=== PATIENT | female | born 1945 | race Caucasian/White ===

== ENCOUNTER 2020-01-08 12:43 | Outpatient (CLI) | payer MEDICARE, SELFPAY ==
--- NOTE | 2020-01-08 13:05 | MM_ITS ---
WS: [id number] BILATERAL SCREENING DIGITAL MAMMOGRAM WITH CAD HISTORY: SCREENING COMPARISON: 08/17/2018 and 09/09/2011 Bilateral CC and MLO views submitted. Computer aided detection analyzed. Breast composition: The breasts are heterogeneously dense, which may obscure small masses. No suspici ous masses, microcalcifications or architectural distortion. Benign scattered vascular calcifications and round calcifications. No interval change. MM/[place] [id number] IMPRESSION: BI-RADS: 2-Benign FOLLOW UP: 1 Year Follow-up
== END 2020-01-08 12:44 | disposition home or self-care (01) ==
LOC: RADSHAW 12:48
PROVIDERS: PCP Family Medicine; Visit Provider Family Medicine
DX: Z12.31 Encounter for screening mammogram for malignant neoplasm of breast (principal)
CPT/HCPCS: 77067

== ENCOUNTER 2020-12-13 14:16 | Observation (INO) | payer MEDICARE, SELFPAY ==
[2020-12-13 15:00] VITALS: BP 117/98; PULSE 78; RESP 18; TEMP 36.9; O2SAT 98; BMI 22.6
[2020-12-13 17:21] VITALS: BP 105/68; PULSE 79; RESP 12; TEMP 36.3; O2SAT 94
[2020-12-13 17:30] LABS: Basophils # 0.1 10^3/uL (0.0-0.1); Basophils % 1.1 %; Eosinophils # 0.1 10^3/uL (0.0-0.8); Eosinophils % 1.2 %; Hematocrit 38.2 % (37.0-47.0); Hemoglobin 12.8 g/dL (11.5-15.3); Lymphocytes # 2.9 10^3/uL (0.8-4.8); Lymphocytes % 30.1 %; Mean Corpuscular HGB Conc 33.5 g/dL (30.0-36.0); Mean Corpuscular Hemoglobin 31.5 pg (28.0-34.0); Mean Corpuscular Volume 94.1 fl (81-99); Mean Platelet Volume 11.1 fL (7.4-10.4); Monocytes # 0.6 10^3/uL (0.2-0.9); Monocytes % 6.2 %; Neutrophils # 5.81 10^3/uL (1.8-7.7); Neutrophils % 61.1 %; Nucleated Red Blood Cells % 0 %; Platelet Count 331 10^3/cmm (130-400); Red Blood Count 4.06 10^6/uL (4.1-5.3); Red Cell Distribution Width 13.4 % (12.1-15.1); White Blood Count 9.5 10^3/uL (4.0-10.0)
--- NOTE | 2020-12-13 17:37 | ECG_ITS ---
[facility] Test Date: 2020-12-13 Pat Name: Kimberlyn Be Department: Room: Gender: Female Tobacco Sizer: : 1945 Requested By: Josue Sellers Order Number: [id number] Nikki MD: CHRISTIAN FITZGERALD Measurements Intervals [place] Rate: 72 P: DC: QRS: 95 QRSD: 106 T: 14 QT: 422 QTc: 462 Interpretive Statements ATRIAL FIBRILLATION BORDERLINE RIGHT AXIS DEVIATION [QRS AXIS > 90] ANTERIOR MYOCARDIAL INFARCTION , OF INDETERMINATE AGE [40+ ms Q WAVE AND/OR ST/T ABNORMALITY IN V3/V4] ST DEVIATION AND MODERATE T-WAVE ABNORMALITY, CONSIDER LATERAL ISCHEMIA [-0.1+ mV T-WAVE IN I/aVL/V5/V6] Compared to ECG 08/10/2018 16:44:19 T-wave abnormality now present Possible ischemia now present Myocardial infarct finding still present Electronically Signed On 12-14-2020 0:10:33 CDT by CHRISTIAN FITZGERALD [id number]
[2020-12-13 17:51] LABS: Alanine Aminotransferase 9 U/L (0-33); Albumin Level 2.8 g/dL (3.5-5.2); Alkaline Phosphatase 72 IU/L (35-105); Aspartate Amino Transferase 16 U/L (0-32); Blood Urea Nitrogen 17 mg/dL (8-23); Calcium 9.1 mg/dL (8.5-10.5); Carbon Dioxide 29 mmol/L (22-29); Chloride 97 mmol/L (98-107); Creatinine Clr Calc Pharmacy 49.8831; Globulin 3.4 g/dL (1.3-4.6); Glucose 172 mg/dL (65-115); Osmolality Calculated 288 mOsm/kg (285-295); Sodium 136 mmol/L (136-145); Total Bilirubin 0.3 mg/dL (0.15-1.2); Total Protein 6.2 g/dL (6.6-8.7)
--- NOTE | 2020-12-13 18:22 | XRR_ITS ---
PROCEDURE INFORMATION: Exam: XR Chest Exam date and time: 12/13/2020 6:22 PM Age: 75 years old Clinical indication: Other: Weakness; Prior surgery; Surgery date: 6+ months; Surgery type: Cabg TECHNIQUE: Imaging protocol: XR of the chest. Views: 1 view. COMPARISON: CR Chest 1 [place] [id number] 06/13/2018 11:24 AM FINDINGS: Lungs: Unremarkable. No consolidation. Pleural spaces: Unremarkable. No pleural effusion. No pneumothorax. Heart/Mediastinum: Cardiomegaly. Bones/joints: Sternotomy wires. XR/XR chest 1V portable [id number] IMPRESSION: 1. Negative for infiltrate 2. Cardiomegaly. 3. Sternotomy wires. Radiation Dose CTDIVOL = (mGy): DLP = (mGy-cm)
--- NOTE | 2020-12-13 18:23 | ED_ITS ---
HPI - GI Bleed General: Chief complaint: GI Bleed Stated complaint: BLOODY STOOL, THROWING UP Time Seen by Provider: 12/13/20 18:14 Source: patient Mode of arrival: ambulatory Limitations: no limitations History of Present Illness: HPI Narrative: 75-year-old female who states that she has been having increasing weakness over the last 2 weeks. She states she has not been able to get out of bed or walk over the last week and was not able to walk here. She states she has had some intermittent blood in her stools with bright red she has had some confusion as well she will answer most my questions appropriately but is very frail appearing she has had some vomiting denies any fevers or coughs. Associated symptoms: Denies chills, easy bruising, fever(s), headache(s) or rash Review of Systems Const: Denies: fever(s), chills, body aches or change in appetite Eyes: Denies: blurry vision or eye discomfort ENMT: Denies: throat pain or dental pain Card: Denies: chest pain Resp: Denies: dyspnea GI: Reports: hematochezia : Denies: dysuria Musc: Reports: muscle weakness Skin/Breast: Denies: rash Neuro: Denies: headache(s) Psych: Denies: depression Irvin/Lymph: Denies: easy bruising All/Imm: Denies: urticaria PFSH ED PFSH: Medical History Arthritis Atrial fibrillation CAD (coronary artery disease) Carotid stenosis Depression Diabetes Hernia of abdominal cavity Hypertension Moderate mitral regurgitation Surgical History History of CEA (carotid endarterectomy) Hx of CABG Social History Smoking and tobacco status: former smoker Second hand smoke exposure: No Smoking risk assessment/counseling performed?: No Physical Exam Const: COMMON NORMALS: no acute distress and patient oriented x3 GENERAL APPEARANCE: frail appearing HENMT: COMMON NORMALS: normocephalic and atraumatic HEAD & SCALP: normocephalic and atraumatic Eye: COMMON NORMALS: Equal, round and reactive pupils present and EOMs intact bilaterally PUPIL: Yes Equal, round and reactive pupils present Neck/C-Spine: COMMON NORMALS: full ROM and supple Chest: COMMONS NORMALS: normal inspection of the chest and normal palpation of entire chest wall Resp: COMMON NORMALS: normal respiratory effort, No retractions, No use of accessory muscles and clear to auscultation bilaterally AUSCULTATION: clear to auscultation bilaterally Cardio: COMMON NORMALS: regular rate, regular rhythm and No murmurs present (Cardio) RATE: regular rate RHYTHM: regular rhythm GI: COMMON NORMALS: Normal to inspection, nondistended, normoactive bowel sounds present, Soft to palpation, non-tender and no masses PALPATION: Yes Soft to palpation RECTAL EXAM: visual inspection normal and heme negative stool Extremity: COMMON NORMALS: normal to inspection and full ROM Neuro: COMMON NORMALS: patient oriented x3, moves all extremities and no focal motor deficits Psych: COMMON NORMALS: mental status grossly normal, Normal thought process present and cooperative THOUGHT PROCESS: Normal thought process present Skin: COMMON NORMALS: no rashes or lesions noted and no wounds GENERAL SKIN EXAM: no rashes or lesions noted Course Vital Signs: Vital signs: Vital Signs Temperature 97.4 F L 12/13/20 17:21 Pulse Rate 79 12/13/20 17:21 Respiratory Rate 12 12/13/20 17:21 Blood Pressure 105/68 12/13/20 17:21 Pulse Oximetry 94 12/13/20 17:21 MDM - GI Bleed MDM Narrative: Medical decision making narrative: Patient presents with generalized weakness having difficulty walking does have a urinary tract infection could be causing her weakness she states she had blood in her stool at home her rectal exam here was negative hemoglobin is normal spoke to the hospitalist will admit for her weakness and her cystitis. Lab Data: Labs: Lab Results 12/13/20 12/13/20 12/13/20 17:26 17:26 17:26 WBC 9.5 10^3/uL 10^3/ uL (4.0-10.0) RBC 4.06 10^6/uL L 10 ^6/uL (4.1-5.3) Hgb 12.8 g/dL g/dL (11.5-15.3) Hct 38.2 % % (37.0-47.0) MCV 94.1 fl fl (81-99) MCH 31.5 pg pg (28.0-34.0) MCHC 33.5 g/dL g/dL (30.0-36.0) RDW 13.4 % % (12.1-15.1) Plt Count 331 10^3/cmm 10^3 /cmm (130-400) MPV 11.1 fL H fL (7.4-10.4) Neut % (Auto) 61.1 % % Lymph % (Auto) 30.1 % % [place] % (Auto) 6.2 % % Eos % (Auto) 1.2 % % Baso % (Auto) 1.1 % % Neut # (Auto) 5.81 10^3/uL 10^3 /uL (1.8-7.7) Lymph # (Auto) 2.9 10^3/uL 10^3/ uL (0.8-4.8) [place] # (Auto) 0.6 10^3/uL 10^3/ uL (0.2-0.9) Eos # (Auto) 0.1 10^3/uL 10^3/ uL (0.0-0.8) Baso # (Auto) 0.1 10^3/uL 10^3/ uL (0.0-0.1) Nucleated RBC % (a uto) 0 % % Nucleated RBCs # 0.0 /100WBC /100W BC PT INR Sodium 136 mmol/L mmol/L (136-145) Potassium 4.0 mmol/L mmol/L (3.5-5.1) Chloride 97 mmol/L L mmol/ L (98-107) Carbon Dioxide 29 mmol/L mmol/L (22-29) Anion Gap 14.0 (5-19) BUN 17 mg/dL mg/dL (8-23) Creatinine 0.5 mg/dL mg/dL (0.5-0.9) GFR Calculation Not Reportable Glucose 172 mg/dL H mg/dL (65-115) Calculated Osmolal ity 288 mOsm/kg mOsm/ kg (285-295) Calcium 9.1 mg/dL mg/dL (8.5-10.5) Total Bilirubin 0.3 mg/dL mg/dL (0.15-1.2) AST 16 U/L U/L (0-32) ALT 9 U/L U/L (0-33) Alkaline Phosphata se 72 IU/L IU/L (35-105) Troponin T Baselin e 25 ng/L H ng/L (0-10) Troponin T 120 Min [place] Delta Troponin T Total Protein 6.2 g/dL L g/dL (6.6-8.7) Albumin 2.8 g/dL L g/dL (3.5-5.2) Globulin 3.4 g/dL g/dL (1.3-4.6) Urine Color Urine Appearance Urine pH Ur Specific Gravit y Urine Protein Urine Glucose (UA) Urine Ketones Urine Blood Urine Nitrate Urine Bilirubin Urine Urobilinogen Ur Leukocyte Aleksandra ase Urine RBC Urine WBC Ur Squamous Epith Cells Amorphous Sediment Urine Bacteria 3 12/13/20 12/13/20 12/13/20 17:26 18:19 19:40 WBC RBC Hgb Hct MCV MCH MCHC RDW Plt Count MPV Neut % (Auto) Lymph % (Auto) [place] % (Auto) Eos % (Auto) Baso % (Auto) Neut # (Auto) Lymph # (Auto) [place] # (Auto) Eos # (Auto) Baso # (Auto) Nucleated RBC % (a uto) Nucleated RBCs # PT 16.60 SECONDS H S ECONDS (12.1-14.9) INR 1.30 H (0.8-1.2) Sodium Potassium Chloride Carbon Dioxide Anion Gap BUN Creatinine GFR Calculation Glucose Calculated Osmolal ity Calcium Total Bilirubin AST ALT Alkaline Phosphata se Troponin T Baselin e Troponin T 120 Min [place] 21.39 ng/L H ng/L (0-10) Delta Troponin T -3.61 ABS# L ABS# (0-10) Total Protein Albumin Globulin Urine Color Yellow (Yellow) Urine Appearance Hazy A (CLEAR) Urine pH 5 (5-7) Ur Specific Gravit y 1.005 (1.005-1.030) Urine Protein 2+ H (Negative) Urine Glucose (UA) Norm (Normal) Urine Ketones Negative (Negative) Urine Blood 3+ H (Negative) Urine Nitrate Negative (Negative) Urine Bilirubin Neg (Negative) Urine Urobilinogen Norm mg/dL mg/dL (Negative) Ur Leukocyte Aleksandra ase 1+ H (Negative) Urine RBC 15-25 /hpf H /hpf (0-2) Urine WBC 80-100 /hpf H /hp f (0-5) Ur Squamous Epith Cells 0-4 /hpf H /hpf (0-5) Amorphous Sediment Not Reportable Urine Bacteria 4+ /hpf H /hpf (NONE) Imaging Data^: CXR: Attestation: I personally reviewed and interpreted this imaging study as follows: Radiologist's impression: [facility] [address] [place] [id number] XRay Report Signed Patient: Kimberlyn Be Unit #: [id number] : 1945 Age/Sex: 75 / F ADM Date: 12/13/20 Loc: ER Room/Bed: Attending Dr: Ordering Provider/Ordering MD: Ras Easley MD Date of Service: 12/13/20 Procedure(s): XR chest 1V portable [id number] Accession Number(s): [id number] Report Number: [id number] PROCEDURE INFORMATION: Exam: XR Chest Exam date and time: 12/13/2020 6:22 PM Age: 75 years old Clinical indication: Other: Weakness; Prior surgery; Surgery date: 6+ months; Surgery type: Cabg TECHNIQUE: Imaging protocol: XR of the chest. Views: 1 view. COMPARISON: CR Chest 1 [place] [id number] 06/13/2018 11:24 AM FINDINGS: Lungs: Unremarkable. No consolidation. Pleural spaces: Unremarkable. No pleural effusion. No pneumothorax. Heart/Mediastinum: Cardiomegaly. Bones/joints: Sternotomy wires. XR/XR chest 1V portable [id number] IMPRESSION: 1. Negative for infiltrate 2. Cardiomegaly. 3. Sternotomy wires. Radiation Dose CTDIVOL = (mGy): DLP = (mGy-cm) Dictated By: Toan Rice MD Signed By: Toan Rice MD Signed Date/Time: 12/13/201902 DD/ 21 CT Head: Radiologist's impression: [facility] [address] [place] [address] Scan Report Signed Patient: Kimberlyn Be Unit #: [id number] : 1945 Age/Sex: 75 / F ADM Date: 12/13/20 Loc: ER Room/Bed: Attending Dr: Ordering Provider/Ordering MD: Ras Easley MD Date of Service: 12/13/20 Procedure(s): CT head wo con* [id number] Accession Number(s): [id number] Report Number: [id number] PROCEDURE INFORMATION: Exam: CT Head Without Contrast Exam date and time: 12/13/2020 6:22 PM Age: 75 years old Clinical indication: Altered mental status/memory loss and weakness, extremity; Bilateral; Confusion or disorientation; Patient HX: Weakness x 2 weeks w confusion; Additional info: Weakjness TECHNIQUE: Imaging protocol: Computed tomography of the head without contrast. Radiation optimization: All CT scans at this facility use at least one of these dose optimization techniques: automated exposure control; mA and/or kV adjustment per patient size (includes targeted exams where dose is matched to clinical indication); or iterative reconstruction. COMPARISON: MRI Head w/wo* [id number] 06/14/2018 9:39 AM RADIATION DOSE METRICS: Total DLP (mGy-cm): 761.48 FINDINGS: Brain: Chronic right temporal lobe infarct. Large amount of diffuse white matter disease likely reflecting chronic microvascular ischemic changes. Cerebral ventricles: No ventriculomegaly. Paranasal sinuses: Visualized sinuses are unremarkable. No fluid levels. Mastoid air cells: Visualized mastoid air cells are well aerated. Bones/joints: Unremarkable. No acute fracture. Soft tissues: Unremarkable. CT/CT head wo con* [id number] IMPRESSION: 1. Negative for intracranial hemorrhage or mass effect. 2. Chronic right temporal lobe infarct. 3. Large amount of diffuse white matter disease likely reflecting chronic microvascular ischemic changes. Radiation Dose CTDIVOL = (mGy): DLP = 761.48 (mGy-cm) Dictated By: Toan Rice MD Signed By: Toan Rice MD Signed Date/Time: 12/13/201848 DD/ 21 Discharge Plan Discharge Patient Disposition: Admitted As Inpatient Clinical Impression: Blood in stool, Weakness Acute cystitis Qualifiers: Hematuria presence: with hematuria Qualified Code(s): N30.01 - Acute cystitis with hematuria Condition: Stable Coding Level of Care Code ED Business Excellence Leader for Chg Fwd Exam Comprehensive
[2020-12-13 18:26] LABS: Troponin(5th) Baseline 25 ng/L (0-10)
[2020-12-13] MEDS: sodium chloride 0.9% 1,000 ML 999 ML IV (18:43)
[2020-12-13 19:03] LABS: Urine Appearance Hazy (CLEAR); Urine Color Yellow (Yellow)
[2020-12-13 19:04] LABS: Glucose Urine UA Norm (Normal); Protein Urine 2+ (Negative); Specific Gravity, Urine 1.005 (1.005-1.030); pH Urine 5 (5-7)
[2020-12-13 19:05] LABS: Add Urine Microscopic? YES; Bilirubin Urine Neg (Negative); Blood Urine 3+ (Negative); Ketones Urine Negative (Negative); Leukocyte Esterase Urine 1+ (Negative); Nitrate Urine Negative (Negative); Urobilinogen Urine Norm (Negative)
[2020-12-13 19:07] LABS: RBC Urine 15-25 /hpf (0-2); WBC Urine 80-100 /hpf (0-5)
[2020-12-13 19:08] LABS: Add Urine Culture? Yes; Bacteria Urine 4+ /hpf; Squamous Epithelial Cell Urine 0-4 /hpf (0-5)
[2020-12-13] MEDS: cefTRIAXone 1,000 MG in sodium chloride 0.9% (plus) 50 ML 100 MG IV (19:25)
--- NOTE | 2020-12-13 19:37 | ECG_ITS ---
[facility] Test Date: 2020-12-13 Pat Name: Kimberlyn Be Department: Room: Gender: Female Jackspooler: : 1945 Requested By: Josue Sellers Order Number: [id number] Nikki MD: CHRISTIAN FITZGERALD Measurements Intervals [place] Rate: 63 P: VA: QRS: 89 QRSD: 101 T: -28 QT: 428 QTc: 440 Interpretive Statements ATRIAL FIBRILLATION WITH ABERRANT CONDUCTION OR VENTRICULAR PREMATURE COMPLEXES INFERIOR MYOCARDIAL INFARCTION , OF INDETERMINATE AGE [40+ ms Q WAVE AND/OR ST/T ABNORMALITY IN II/aVF] Compared to ECG 12/13/2020 17:19:36 Ventricular premature complex(es) now present Aberrant conduction of supraventricular beat(s) now present T-wave abnormality no longer present Possible ischemia no longer present Myocardial infarct finding still present Electronically Signed On 12-14-2020 0:15:36 CDT by CHRISTIAN FITZGERALD [id number]
--- NOTE | 2020-12-13 19:48 | PC.NURSE ---
Pt. family in the room is very angry because she is not allowed to go out to lobby and update family and come back to the room due to covid rules.
[2020-12-13 20:06] LABS: Troponin 5 2HR 21.39 ng/L (0-10)
[2020-12-13 20:10] LABS: Troponin 5 2HR Delta -3.61 ABS# (0-10)
[2020-12-13 21:29] VITALS: BP 139/70; PULSE 98; RESP 20; O2SAT 94
[2020-12-13 23:01] VITALS: BP 149/50; PULSE 78; RESP 17; TEMP 36.8; O2SAT 100
[2020-12-13 23:06] VITALS: BMI 24.1
[2020-12-14 03:36] VITALS: BP 145/63; PULSE 57; RESP 17; TEMP 37.1; O2SAT 98
[2020-12-14 07:38] VITALS: PULSE 60; RESP 17; TEMP 37.2; O2SAT 96
--- NOTE | 2020-12-14 08:01 | P.HP_ITS ---
Providers/Chief Complaint Admitting Physician: Aliya Potter MD Primary Care Provider: Roney Clinton Chief Complaint: BLOODY STOOL, THROWING UP History of Present Illness Kimberlyn Be is a 75 year old female who presented to the emergency room with complaints of blood per rectum and not feeling well. She has been very weak, not feeling like she can get up and walk around. Spent a lot of time in bed. She has not had a good appetite. She has had some nausea and vomitng. Has not had any diarrhea. Denies abdominal pain. Has not had any difficulty urinating. She admits to feeling confused at times. No reports of any chest pain. She does not report shortness of breath with exertion but again has not been exerting much due to feeling weak. The weakness is all over, not worse on one side or the other. She does have some chronic paresthesias in her lower extremities. Her legs always hurt. Nothing is new in this regard. She does have diabetes mellitus, known coronary artery disease, peripheral artery disease among other diagnoses listed below. She follows with Dr. Schaeffer here. Denies any recent medication changes. Reports compliance with her medications. She is not able to list all of them but indicates that it should be similar to what she was on when she was here seeing Dr. Sami elmore. Work-up in the emergency room showed an abnormal urinalysis with a few squamous cells in place, negative cardiac enzymes, chest x-ray and CT of the head without acute findings. She was felt too weak for discharge based on evaluation. She received some Rocephin and is being admitted for further care. Stool was checked in the emergency room and was brown, Hemoccult negative without any evidence of bleeding visualized. Review of Systems General: Reports: 10 or more systems reviewed and unremarkable except in HPI and below Medications/Allergies Home Medications Medication Instructions Recorded Confirmed Last Taken Type Lactobacillus acidophilus 0.25 tsp PO DAILY 12/17/19 06/24/20 Unknown History apixaban 5 mg tablet 5 mg PO BID 12/17/19 06/24/20 Unknown History atorvastatin 40 mg tablet 40 mg PO DAILY 12/17/19 06/24/20 Unknown History cholestyramine (with sugar) 4 gram 4 gm PO BID 12/17/19 06/24/20 Unknown History powder for susp in a packet cilostazol 100 mg tablet 100 mg PO BID 12/17/19 06/24/20 Unknown History cyanocobalamin (vitamin B-12) 1,000 mcg PO DAILY 12/17/19 06/24/20 Unknown History 1,000 mcg capsule desonide 0.05 % topical cream 1 applic TOPICAL DAILY 12/17/19 06/24/20 Unknown History digoxin 125 mcg (0.125 mg) tablet 125 mcg PO DAILY 12/17/19 06/24/20 Unknown History dulaglutide 0.75 mg/0.5 mL 0.5 mg SUBCUT .WEEKLY ml 12/17/19 06/24/20 Unknown History subcutaneous pen injector fenofibrate nanocrystallized 145 145 mg PO DAILY 12/17/19 06/24/20 Unknown History mg tablet ferrous sulfate 325 mg (65 mg 325 mg PO TID tab 12/17/19 06/24/20 Unknown History iron) tablet fluoxetine 40 mg capsule 40 mg PO DAILY 12/17/19 06/24/20 Unknown History furosemide 20 mg tablet 20 mg PO DAILY 12/17/19 06/24/20 Unknown History hydrochlorothiazide 12.5 mg tablet 12.5 mg PO DAILY 12/17/19 06/24/20 Unknown Hi story insulin detemir U-100 100 unit/mL 35 unit SUBCUT DAILY ml 12/17/19 06/24/20 Unknown History subcutaneous solution insulin lispro 100 unit/mL 5 unit SUBCUT TID ml 12/17/19 06/24/20 Unknown History subcutaneous pen isosorbide mononitrate 30 mg 30 mg PO DAILY 12/17/19 06/24/20 Unknown History tablet,extended release 24 hr magnesium oxide 400 mg PO BID tab 12/17/19 06/24/20 Unknown History metformin 1,000 mg tablet,extended 1,000 mg PO BID tab 12/17/19 06/24/20 Unknown History release 24hr metoprolol tartrate 25 mg tablet 25 mg PO BID tab 12/17/19 06/24/20 Unknown History omega-3 fatty acids 1,000 mg 1,000 mg PO TID cap 12/17/19 06/24/20 Unknown History capsule ondansetron HCl 4 mg tablet 4 mg PO Q8H 12/17/19 06/24/20 Unknown History pantoprazole 40 mg tablet,delayed 40 mg PO DAILY 12/17/19 06/24/20 Unknown History release potassium chloride 20 mEq 20 meq PO BID tab 12/17/19 06/24/20 Unknown History tablet,extended release promethazine 12.5 mg tablet 12.5 mg PO TID 12/17/19 06/24/20 Unknown History quinapril 20 mg tablet 20 mg PO DAILY 12/17/19 06/24/20 Unknown History Allergies Allergy/AdvReac Type Severity Reaction Status Date / Time adhesive tape Allergy ALGY-Rash Verified 06/24/20 13:25 PFSH Acute PFSH: Medical History (Updated 12/14/20 @ 08:35 by Aliya Potter MD) Arthritis Atrial fibrillation CAD (coronary artery disease) Carotid stenosis CHF (congestive heart failure) Echo 11/27/2019 with EF of 55%, diastolic dysfunction and moderate mitral reg urgitation with basal inferior wall hypokinesis Depression Diabetes 4 para 4 Hernia of abdominal cavity History of cardioversion History of colon polyps History of GI bleed Hx of herpes encephalitis Hyperlipidemia Hypertension Iron deficiency anemia Moderate mitral regurgitation Peripheral artery disease Surgical History (Updated 12/14/20 @ 08:06 by Aliya Potter MD) History of CEA (carotid endarterectomy) Hx of CABG (~1999) Family History (Updated 12/14/20 @ 08:04 by Aliya Potter MD) Other CAD (coronary artery disease) Social History (Updated 12/14/20 @ 08:05 by Aliya Potter MD) Smoking and tobacco status: former smoker Second hand smoke exposure: No Alcohol intake: never Substance/Drug Use: never Household members: spouse Marital status: Vitals/I&O/Wt Last Vital Signs Temp 98.9 F 12/14/20 07:38 Pulse 60 12/14/20 07:38 Resp 17 12/14/20 07:38 BP 145/63 12/14/20 03:36 Pulse Ox 96 12/14/20 07:38 12/13/20 12/14/20 12/14/20 22:59 06:59 14:59 Intake Total 1050 / 1050 Balance 1050 / 1050 Weight last 48 hrs Weight 58.06 kg Weight 54.431 kg Physical Exam Narrative: EXAM NARRATIVE: Constitutional: Awake and alert, cooperative HEENT: Normocephalic, atraumatic, pupils are equally reactive, extraocular movements are intact, eyes are little puffy, oropharynx with dry mucous membra derrick Neck: Supple Respiratory: Clear to auscultation bilaterally without any rales rhonchi or wheezes noted Cardiovascular: Irregularly irregular, 2+ murmur noted Abdomen: Soft, nontender, nondistended with positive bowel sounds Extremities: Legs are tender to touch anywhere, right lower extremity is slightly smaller in diameter than left lower extremity which patient indicates is chronic, no edema Skin: Skin is quite dry, she has a few sores in different stages of healing on extensor surfaces Neuro: Speech clear, face symmetric, moves all extremities but generally weak, no tremors Psych: Normal affect, oriented to person and place, not able to recall details Data : 12/13/20 17:26 12/13/20 17:26 Other Labs: Laboratory Results WBC 9.5 10^3/uL (4.0-10.0) 12/13/20 17: RBC 4.06 10^6/uL (4.1-5.3) L 12/13/20 17:26 Hgb 12.8 g/dL (11.5-15.3) 12/13/20 17:26 Hct 38.2 % (37.0-47.0) 12/13/20 17:26 MCV 94.1 fl (81-99) 12/13/20 17:26 MCH 31.5 pg (28.0-34.0) 12/13/20 17:26 MCHC 33.5 g/dL (30.0-36.0) 12/13/20 17:26 RDW 13.4 % (12.1-15.1) 12/13/20 17:26 Plt Count 331 10^3/cmm (130-400) 12/13/20 17:26 MPV 11.1 fL (7.4-10.4) H 12/13/20 17:26 Neut % (Auto) 61.1 % 12/13/20 17:26 Lymph % (Auto) 30.1 % 12/13/20 17:26 Dunn % (Auto) 6.2 % 12/13/20 17:26 Eos % (Auto) 1.2 % 12/13/20 17:26 Baso % (Auto) 1.1 % 12/13/20 17:26 Neut # (Auto) 5.81 10^3/uL (1.8-7.7) 12/13/20 17:26 Lymph # (Auto) 2.9 10^3/uL (0.8-4.8) 12/13/20 17:26 Dunn # (Auto) 0.6 10^3/uL (0.2-0.9) 12/13/20 17:26 Eos # (Auto) 0.1 10^3/uL (0.0-0.8) 12/13/20 17:26 Baso # (Auto) 0.1 10^3/uL (0.0-0.1) 12/13/20 17:26 Nucleated RBC % (auto) 0 % 12/13/20 17:26 Nucleated RBCs # 0.0 /100WBC 12/13/20 17:26 PT 16.60 SECONDS (12.1-14.9) H 12/13/20 17:26 INR 1.30 (0.8-1.2) H 12/13/20 17:26 Sodium 136 mmol/L (136-145) 12/13/20 17:26 Potassium 4.0 mmol/L (3.5-5.1) 12/13/20 17:26 Chloride 97 mmol/L (98-107) L 12/13/20 17:26 Carbon Dioxide 29 mmol/L (22-29) 12/13/20 17:26 Anion Gap 14.0 (5-19) 12/13/20 17:26 BUN 17 mg/dL (8-23) 12/13/20 17:26 Creatinine 0.5 mg/dL (0.5-0.9) 12/13/20 17:26 GFR Calculation Not Reportable 12/13/20 17:26 Glucose 172 mg/dL (65-115) H 12/13/20 17:26 Calculated Osmolality 288 mOsm/kg (285-295) 12/13/20 17:26 Calcium 9.1 mg/dL (8.5-10.5) 12/13/20 17:26 Total Bilirubin 0.3 mg/dL (0.15-1.2) 12/13/20 17:26 AST 16 U/L (0-32) 12/13/20 17:26 ALT 9 U/L (0-33) 12/13/20 17:26 Alkaline Phosphatase 72 IU/L (35-105) 12/13/20 17:26 Troponin T Baseline 25 ng/L (0-10) H 12/13/20 17:26 Troponin T 120 Minute 21.39 ng/L (0-10) H 12/13/20 19:40 Delta Troponin T -3.61 ABS# (0-10) L 12/13/20 19:40 Total Protein 6.2 g/dL (6.6-8.7) L 12/13/20 17:26 Albumin 2.8 g/dL (3.5-5.2) L 12/13/20 17:26 Globulin 3.4 g/dL (1.3-4.6) 12/13/20 17:26 Urine Color Yellow (Yellow) 12/13/20 18:19 Urine Appearance Hazy (CLEAR) A 12/13/20 18:19 Urine pH 5 (5-7) 12/13/20 18:19 Ur Specific [place] 1.005 (1.005-1.030) 12/13/20 18:19 Urine Protein 2+ (Negative) H 12/13/20 18:19 Urine Glucose (UA) Norm (Normal) 12/13/20 18:19 Urine Ketones Negative (Negative) 12/13/20 18:19 Urine Blood 3+ (Negative) H 12/13/20 18:19 Urine Nitrate Negative (Negative) 12/13/20 18:19 Urine Bilirubin Neg (Negative) 12/13/20 18:19 Urine Urobilinogen Norm mg/dL (Negative) 12/13/20 18:19 Ur Leukocyte Esterase 1+ (Negative) H 12/13/20 18:19 Urine RBC 15-25 /hpf (0-2) H 12/13/20 18:19 Urine WBC 80-100 /hpf (0-5) H 12/13/20 18:19 Ur Squamous Epith Cells 0-4 /hpf (0-5) H 12/13/20 18:19 Amorphous Sediment Not Reportable 12/13/20 18:19 Urine Bacteria 4+ /hpf (NONE) H 12/13/20 18:19 Digoxin 1.0 ng/mL (0.6-1.2) 12/13/20 17:26 Impressions Chest X-Ray 12/13/20 18:22 IMPRESSION: 1. Negative for infiltrate 2. Cardiomegaly. 3. Sternotomy wires. Radiation Dose CTDIVOL = (mGy): DLP = (mGy-cm) Head CT 12/13/20 18:22 IMPRESSION: 1. Negative for intracranial hemorrhage or mass effect. 2. Chronic right temporal lobe infarct. 3. Large amount of diffuse white matter disease likely reflecting chronic microvascular ischemic changes. Radiation Dose CTDIVOL = (mGy): DLP = 761.48 (mGy-cm) A&P Assessment and plan (1) Weakness: Multifactorial from comorbid conditions, possibility of urinary tract infection although she denies symptoms, potential variability of blood pressures and/or heart rate contributing to weakness, electrolyte or other metabolic abnormalities and even potentially depression as a contributing factor among even water differential. No evidence of acute neurological event though CT of the head does show old findings. Status: Acute (2) Acute cystitis: Versus contaminated urine specimen, no urinary symptoms or white count. Given the weakness and GI complaints has been empirically covered with Rocephin Status: Acute Qualifiers: Hematuria presence: with hematuria Qualified Code(s): N30.01 - Acute cystitis with hematuria (3) Blood in stool: Reported as occurring over the last couple of weeks intermittently, not currently present on evaluation in the emergency room including Hemoccult negative stool identified Status: Acute (4) Hypertension: Chronically on exam multiple medications including isosorbide, diuretics, beta-blockade Status: Chronic Qualifiers: Hypertension type: primary hypertension Qualified Code(s): I10 - Essential (primary) hypertension (5) Diabetes: Chronically on insulin therapy, has been uncontrolled with last hemoglobin A1c notated in cardiology clinic note of 10.4 Status: Chronic Qualifiers: Diabetes mellitus type: type 2 Diabetes mellitus exterminator helper termite insulin use: with exterminator helper termite use Diabetes mellitus complication status: with hyperglycemia Qualified Code(s): E11.65 - Type 2 diabetes mellitus with hyperglycemia; Z79.4 - buttermaker (current) use of insulin (6) Atrial fibrillation: Has had previous cardioversion or ablation, no comparative EKGs prior to today but cardiology clinic notes do indicate chronic atrial fibrillation. She is on beta-blockade and digoxin as well as Eliquis according to available records Status: Chronic Qualifiers: Atrial fibrillation type: unspecified chronic Qualified Code(s): I48.20 - Chronic atrial fibrillation, unspecified (7) CAD (coronary artery disease): Has had previous surgery around the year 1999, currently without chest pain Status: Chronic Qualifiers: Coronary Disease-Associated Artery/Lesion type: bypass graft [place] vs. transplanted heart: [place] heart Associated angina: without angina Qualified Code(s): I25.810 - Atherosclerosis of coronary artery bypass graft(s) without angina pectoris (8) CHF (congestive heart failure): With preserved ejection fraction, chronically on diuresis, currently appears well compensated and even dry Status: Chronic Qualifiers: Heart failure type: diastolic Heart failure chronicity: chronic Qualified Code(s): I50.32 - Chronic diastolic (congestive) heart failure (9) Carotid stenosis: With prior carotid endarterectomy Status: Chronic Qualifiers: Laterality: unspecified laterality Qualified Code(s): I65.29 - Occlusion and stenosis of unspecified carotid artery (10) Peripheral artery disease: On chronic Pletal Status: Chronic (11) Hyperlipidemia: Chronically on statin Status: Chronic Qualifiers: Hyperlipidemia type: unspecified Qualified Code(s): E78.5 - Hyperlipidemia, unspecified (12) Chronic anticoagulation: With Eliquis Status: Acute Additional A&P Information Hypoalbuminemia Observation admission currently Continue Rocephin Follow-up cultures Low volume IV fluids Hold diuretics Monitor for development of blood in her stools Sliding-scale insulin Check TSH Check CK level Need to see if we can get full clarification of home medication list with family or pharmacy assistance in the morning Continue isosorbide, beta-blockade and GRICELDA inhibitor Monitor blood pressures for additional medication Continue digoxin pending result of digoxin level Continue statin therapy Continue Eliquis and Pletal Monitor respiratory status PT and OT evaluation Supportive care otherwise Plans were discussed with patient and she was given an opportunity to ask questions Currently anticipate discharge home Full code Attestations Medical Necessity Statement*: Currently anticipate a stay less than 2 midnights in a patient presenting with a couple of weeks of weakness. She reports blood in her stools but stool was Hemoccult negative. She has an abnormal urinalysis but is not describing symptoms. She has multiple comorbid conditions that may be a contributing factor and is quite weak in the ER. We will see how she is with some fluids and holding of a few medications overnight and then reevaluate. Other plans as indicated Coding Level of Care Code Acute Emergency Department Manager for [facility] Diagnoses Weakness R53.1 Acute cystitis N30.01 Hematuria presence: with hematuria Blood in stool K92.1 Hypertension I10 Hypertension type: primary hypertension Diabetes E11.65; Z79.4 Diabetes mellitus type: type 2 Diabetes mellitus longterm insulin use: with longterm use Diabetes mellitus complication status: with hyperglycemia Atrial fibrillation I48.20 Atrial fibrillation type: unspecified chronic CAD (coronary artery disease) I25.810 Coronary Disease-Associated Artery/Lesion type: bypass graft [place] vs. transplanted heart: [place] heart Associated angina: without angina CHF (congestive heart failure) I50.32 Heart failure type: diastolic Heart failure chronicity: chronic Carotid stenosis I65.29 Laterality: unspecified laterality Peripheral artery disease I73.9 Hyperlipidemia E78.5 Hyperlipidemia type: unspecified Chronic anticoagulation Z79.01
[2020-12-14 08:12] VITALS: BP 230/60
[2020-12-14 08:56] LABS: Basophils # 0.1 10^3/uL (0.0-0.1); Eosinophils # 0.2 10^3/uL (0.0-0.8); Eosinophils % 2.2 %; Hematocrit 35.5 % (37.0-47.0); Hemoglobin 12.1 g/dL (11.5-15.3); Lymphocytes # 2.4 10^3/uL (0.8-4.8); Lymphocytes % 26.6 %; Mean Corpuscular HGB Conc 34.1 g/dL (30.0-36.0); Mean Corpuscular Hemoglobin 31.8 pg (28.0-34.0); Mean Corpuscular Volume 93.4 fl (81-99); Mean Platelet Volume 11.5 fL (7.4-10.4); Monocytes # 0.6 10^3/uL (0.2-0.9); Monocytes % 6.1 %; Neutrophils % 63.8 %; Nucleated Red Blood Cells % 0 %; Platelet Count 316 10^3/cmm (130-400); Red Cell Distribution Width 13.7 % (12.1-15.1)
[2020-12-14] MEDS: cefTRIAXone 1,000 MG in sodium chloride 0.9% (plus) 50 ML 100 MG IV (09:02)
[2020-12-14] MEDS: isosorbide mononitrate ER 30 mg Tablet PO (09:02)
[2020-12-14] MEDS: apixaban 5 mg Tablet PO ×2 (09:02→20:36)
[2020-12-14] MEDS: sodium chlor 0.9% + KCl 20 mEq 20 MEQ/1,000 ML BAG 50 MEQ IV (09:02)
[2020-12-14] MEDS: cilostazol 100 mg Tablet PO ×2 (09:02→18:32)
[2020-12-14] MEDS: lisinopril 10 mg Tablet PO ×2 (09:03→16:40)
[2020-12-14] MEDS: metoprolol tartrate 25 mg Tablet 12.5 MG PO ×2 (09:03→20:35)
[2020-12-14 09:19] LABS: Creatine Phosphokinase 30 U/L (26-192)
[2020-12-14 09:30] LABS: Anion Gap 12.6 (5-19); Blood Urea Nitrogen 16 mg/dL (8-23); Calcium 8.8 mg/dL (8.5-10.5); Carbon Dioxide 28 mmol/L (22-29); Chloride 96 mmol/L (98-107); Glucose 150 mg/dL (65-115); Magnesium 1.1 mg/dL (1.7-2.3); Osmolality Calculated 280 mOsm/kg (285-295); Phosphorus 2.9 mg/dL (2.5-4.5); Potassium 3.6 mmol/L (3.5-5.1); Sodium 133 mmol/L (136-145); Thyroid Stimulating Hormone 2.93 uIU/mL (0.27-4.20)
[2020-12-14] MEDS: pantoprazole DR 40 mg Tablet PO (10:14)
[2020-12-14 10:28] VITALS: BP 176/63; PULSE 90; RESP 16; O2SAT 96
[2020-12-14 11:17] VITALS: BP 191/64; PULSE 78; RESP 17; TEMP 37.6; O2SAT 96
[2020-12-14 11:34] LABS: Glucose Point of Care 306 mg/dL (70-110)
--- NOTE | 2020-12-14 11:43 | PC.PHAR ---
pt states her darcy takes care of her [phone] darcy verified pts medications along with med list from [facility]-pts states the pt hasnt taken her levemir or humalog in a month or so-pts states he cant remember how many units the pt was using-[facility] states the last filled in 2017-pts states the pt has been using the trulicity weekly-notes are made in the pharmacy comments
--- NOTE | 2020-12-14 13:49 | PM.MISC ---
Miscellaneous Note Purpose of Documentation: Patient was examined H&P reviewed Her systolic blood pressure has been ranging between 170s to 200mmhg patient is stating that she has not missed any medications She is not complaining of any active headache, chest pain or shortness of breath however fatigue and lethargic Requested Covid antigen requested nurse and pharmacy to review medications, called to verify medications was able to work with physical therapist however extremely tired and fatigued Eomi, PERRLA NIH 0 S1, S2 Abdomen soft Clinically looks slightly dehydrated No audible stridor or wheezing Plan Add Covid antigen Optimize antihypertensive regimen, her heart rate is fluctuating between 70 to 80s, there was an isolated reading of 57, digoxin level is 1 Check TSH, B12, magnesium level Hypomagnesemia: Repleted
[2020-12-14] MEDS: magnesium sulfate premix 2 GM/50 ML PIGGYBACK IV (13:51)
[2020-12-14] MEDS: hyDRALAzine 25 mg Tablet PO ×3 (13:51→20:36)
[2020-12-14] MEDS: insulin lispro 100 unit/1 mL SUBCUT ×3 (13:51→20:36)
[2020-12-14 14:21] LABS: SARS Covid-2 Antigen Negative (Negative)
[2020-12-14] MEDS: acetaminophen 325 mg Tablet 650 MG PO (16:40)
[2020-12-14 18:04] LABS: Glucose Point of Care 264 mg/dL (70-110)
[2020-12-14 20:00] VITALS: BP 150/62; PULSE 55; RESP 16; TEMP 37; O2SAT 97
[2020-12-14] MEDS: atorvastatin 40 mg Tablet PO (20:36)
[2020-12-14 20:37] LABS: Glucose Point of Care 261 mg/dL (70-110)
[2020-12-15] VITALS: BP 160/52; PULSE 61; RESP 16; TEMP 36.9; O2SAT 98
[2020-12-15 06:18] LABS: Basophils # 0.1 10^3/uL (0.0-0.1); Basophils % 0.5 %; Eosinophils # 0.2 10^3/uL (0.0-0.8); Eosinophils % 1.6 %; Hematocrit 34.4 % (37.0-47.0); Hemoglobin 11.7 g/dL (11.5-15.3); Lymphocytes # 2.5 10^3/uL (0.8-4.8); Mean Corpuscular Hemoglobin 31.6 pg (28.0-34.0); Mean Platelet Volume 11.1 fL (7.4-10.4); Monocytes # 0.9 10^3/uL (0.2-0.9); Neutrophils # 9.24 10^3/uL (1.8-7.7); Neutrophils % 71.6 %; Nucleated Red Blood Cells % 0 %; Platelet Count 288 10^3/cmm (130-400); Red Cell Distribution Width 13.4 % (12.1-15.1); White Blood Count 12.9 10^3/uL (4.0-10.0)
[2020-12-15 06:30] LABS: Glucose Point of Care 166 mg/dL (70-110)
[2020-12-15] MEDS: cefTRIAXone 1,000 MG in sodium chloride 0.9% (plus) 50 ML 100 MG IV (06:42)
[2020-12-15 06:47] LABS: Anion Gap 12.1 (5-19); Blood Urea Nitrogen 14 mg/dL (8-23); Calcium 8.3 mg/dL (8.5-10.5); Carbon Dioxide 26 mmol/L (22-29); Chloride 93 mmol/L (98-107); Glucose 160 mg/dL (65-115); Magnesium 1.6 mg/dL (1.7-2.3); Osmolality Calculated 270 mOsm/kg (285-295); Phosphorus 3.3 mg/dL (2.5-4.5); Potassium 3.1 mmol/L (3.5-5.1); Sodium 128 mmol/L (136-145)
[2020-12-15 08:00] VITALS: BP 175/65; PULSE 85; RESP 17; O2SAT 96
[2020-12-15] MEDS: lisinopril 10 mg Tablet 30 MG PO (08:46)
[2020-12-15] MEDS: metoprolol tartrate 25 mg Tablet 12.5 MG PO ×2 (08:46→20:28)
[2020-12-15] MEDS: cilostazol 100 mg Tablet PO ×2 (08:46→18:05)
[2020-12-15] MEDS: isosorbide mononitrate ER 30 mg Tablet PO (08:46)
[2020-12-15] MEDS: insulin lispro 100 unit/1 mL SUBCUT ×4 (08:46→20:27)
[2020-12-15] MEDS: pantoprazole DR 40 mg Tablet PO (08:46)
[2020-12-15] MEDS: hyDRALAzine 25 mg Tablet PO ×3 (08:46→20:28)
[2020-12-15] MEDS: apixaban 5 mg Tablet PO ×2 (08:47→20:28)
[2020-12-15 10:39] LABS: Vitamin B12 590 pg/mL (232-1245)
--- NOTE | 2020-12-15 11:05 | PC.NUTR ---
Nutrition note: Pt triggered for low BMI based upon admit weight of 120 lbs, however current weight of 128 lbs is within normal range. Will assess at 5D LOS or as needed per consult.
[2020-12-15] MEDS: potassium chloride ER 20 mEq Tablet 40 MEQ PO (11:09)
[2020-12-15] MEDS: magnesium oxide 400 mg tablet PO ×2 (11:09→18:05)
[2020-12-15 12:00] VITALS: BP 189/63; PULSE 60; RESP 16; TEMP 36.9; O2SAT 99
[2020-12-15 12:15] LABS: Glucose Point of Care 269 mg/dL (70-110)
[2020-12-15 16:00] VITALS: BP 186/65; PULSE 75; RESP 16; TEMP 36.8; O2SAT 97
--- NOTE | 2020-12-15 16:04 | PM.PN ---
Subjective Subjective: Interval history: Continue exam this morning, urine culture showing gram-negative rods, no severe leukocytosis, jump in white count noted, she has been afebrile B12 level low normal she does have fatigue myalgia Covid test came back negative To work with physical therapy today possible discharge tomorrow Vitals/I&O/Wt Last Vital Signs Temp 98.5 F 12/15/20 12:00 Pulse 60 12/15/20 12:00 Resp 16 12/15/20 12:00 BP 189/63 12/15/20 12:00 Pulse Ox 99 12/15/20 12:00 12/15/20 12/15/20 12/15/20 06:59 14:59 22:59 Intake Total 650 / 650 Balance 650 / 650 Weight last 48 hrs Weight 58.06 kg Physical Exam Narrative: EXAM NARRATIVE: Patient laying comfortably in her bed I did ask her to get up from her bed and asked her to close eyes positive Romberg sign No active neurological focal deficits S1, S2 Abdomen soft distended visceral obesity Looks euvolemic No audible stridor or wheezing Data : 12/15/20 05:58 12/15/20 05:58 Micro: Microbiology 12/13/20 18:19 Urine Culture - Preliminary Urine,Clean Catch Gram Negative Rods A&P Assessment and plan (1) Acute cystitis: Status: Acute Qualifiers: Hematuria presence: with hematuria Qualified Code(s): N30.01 - Acute cystitis with hematuria (2) Weakness: Status: Acute (3) Hypertension: Status: Chronic Qualifiers: Hypertension type: primary hypertension Qualified Code(s): I10 - Essential (primary) hypertension (4) Moderate mitral regurgitation: Status: Chronic Additional A&P Information Acute cystitis associate with weakness and lethargy Covid test negative Possible discharge tomorrow We will follow up with culture and sensitivity To work with physical therapy today Cardiac diet DVT prophylaxis currently on Eliquis A. fib without RVR: Hold digoxin Full code No active signs of CHF exacerbation Hypertension: Optimize antihypertensive regimen Attestations Medical Necessity Statement*: dc lee Time Spent in Patient Care: less than 15 minutes Coding Level of Care Code Acute Restaurant Host for [facility] Fwd Diagnoses Acute cystitis N30.01 Hematuria presence: with hematuria Weakness R53.1 Hypertension I10 Hypertension type: primary hypertension Moderate mitral regurgitation I34.0
[2020-12-15 17:19] LABS: Glucose Point of Care 236 mg/dL (70-110)
[2020-12-15 19:57] VITALS: BP 159/67; PULSE 75; RESP 16; TEMP 36.8; O2SAT 98
[2020-12-15 20:15] LABS: Glucose Point of Care 261 mg/dL (70-110)
[2020-12-15] MEDS: atorvastatin 40 mg Tablet PO (20:28)
[2020-12-15] MEDS: acetaminophen 325 mg Tablet 650 MG PO (20:28)
[2020-12-15 23:55] VITALS: BP 148/63; PULSE 71; RESP 16; TEMP 36.9; O2SAT 97
[2020-12-16 04:00] VITALS: BP 180/74; PULSE 73; RESP 16; TEMP 37.1; O2SAT 98
[2020-12-16 06:06] LABS: Basophils # 0.1 10^3/uL (0.0-0.1); Basophils % 0.4 %; Eosinophils # 0.2 10^3/uL (0.0-0.8); Hematocrit 31.9 % (37.0-47.0); Hemoglobin 10.9 g/dL (11.5-15.3); Lymphocytes % 13.6 %; Mean Corpuscular HGB Conc 34.2 g/dL (30.0-36.0); Mean Corpuscular Hemoglobin 32.1 pg (28.0-34.0); Mean Corpuscular Volume 93.8 fl (81-99); Mean Platelet Volume 11.9 fL (7.4-10.4); Monocytes # 1.1 10^3/uL (0.2-0.9); Monocytes % 7.4 %; Neutrophils # 11.05 10^3/uL (1.8-7.7); Neutrophils % 77.2 %; Nucleated Red Blood Cells % 0 %; Platelet Count 282 10^3/cmm (130-400); Red Cell Distribution Width 13.5 % (12.1-15.1); White Blood Count 14.3 10^3/uL (4.0-10.0)
[2020-12-16 06:27] LABS: Anion Gap 10.5 (5-19); Blood Urea Nitrogen 10 mg/dL (8-23); Calcium 8.1 mg/dL (8.5-10.5); Carbon Dioxide 25 mmol/L (22-29); Chloride 94 mmol/L (98-107); Glucose 222 mg/dL (65-115); Osmolality Calculated 268 mOsm/kg (285-295); Potassium 3.5 mmol/L (3.5-5.1); Sodium 126 mmol/L (136-145)
[2020-12-16 06:32] LABS: Glucose Point of Care 198 mg/dL (70-110)
[2020-12-16] MEDS: cefTRIAXone 1,000 MG in sodium chloride 0.9% (plus) 50 ML 100 MG IV (06:32)
[2020-12-16 06:33] LABS: Procalcitonin 0.21 ng/mL (0-0.5)
[2020-12-16 08:00] VITALS: BP 129/71; PULSE 85; RESP 16; TEMP 36.8; O2SAT 98
[2020-12-16] MEDS: lisinopril 10 mg Tablet 30 MG PO (08:08)
[2020-12-16] MEDS: metoprolol tartrate 25 mg Tablet 12.5 MG PO ×2 (08:08→20:19)
[2020-12-16] MEDS: pantoprazole DR 40 mg Tablet PO (08:08)
[2020-12-16] MEDS: magnesium oxide 400 mg tablet PO ×2 (08:08→18:10)
[2020-12-16] MEDS: hyDRALAzine 25 mg Tablet PO ×3 (08:08→20:21)
[2020-12-16] MEDS: isosorbide mononitrate ER 30 mg Tablet PO (08:08)
[2020-12-16] MEDS: insulin lispro 100 unit/1 mL SUBCUT ×4 (08:08→22:28)
[2020-12-16] MEDS: apixaban 5 mg Tablet PO ×2 (08:09→20:19)
[2020-12-16] MEDS: cilostazol 100 mg Tablet PO ×2 (08:09→18:10)
[2020-12-16 12:00] VITALS: BP 126/72; PULSE 86; RESP 16; TEMP 37.2; O2SAT 97
[2020-12-16 12:20] LABS: Glucose Point of Care 296 mg/dL (70-110)
[2020-12-16] MEDS: acetaminophen 325 mg Tablet 650 MG PO ×2 (12:38→19:39)
--- NOTE | 2020-12-16 13:23 | PM.PN ---
Subjective Subjective: Interval history: Patient was seen and examined this morning, she still reluctant to work with physical therapist however agreeable to work with them today, added salt tablets requested serum and urine osmolarity, she does have swelling of upper and lower extremities, Requested uric acid level, urine culture positive for E. coli sensitive to penicillin changed to Augmentin there is increased leukocytosis however she has stayed afebrile, procalcitonin has trended down She is agreeable to for short-term rehab, foster care case manager updated Vitals/I&O/Wt Last Vital Signs Temp 99.0 F 12/16/20 12:00 Pulse 86 12/16/20 12:00 Resp 16 12/16/20 12:00 BP 126/72 12/16/20 12:00 Pulse Ox 97 12/16/20 12:00 12/15/20 12/16/20 12/16/20 22:59 06:59 14:59 Intake Total 100 / 750 1010 / 1010 Output Total 0 / 0 80 / 80 Balance 0 / 650 20 / 670 1010 / 1010 Physical Exam Narrative: EXAM NARRATIVE: Patient was at the bedside eating breakfast Physical therapist in the room S1, S2 variable Volume overload with upper and lower extremity edema Lower extremity venous dermatitis Positive Romberg sign Nonfocal neuro exam EOMI, PERRLA Cooperative and pleasant during my evaluation Extremely lethargic and fatigued Physical deconditioning Data : 12/16/20 04:52 12/16/20 04:52 Micro: Microbiology 12/13/20 18:19 Urine Culture - Final Urine,Clean Catch Escherichia coli A&P Assessment and plan (1) Acute cystitis: Status: Acute Qualifiers: Hematuria presence: with hematuria Qualified Code(s): N30.01 - Acute cystitis with hematuria (2) Weakness: Status: Acute (3) Hyponatremia: Status: Acute (4) Atrial fibrillation: Status: Chronic Qualifiers: Atrial fibrillation type: unspecified chronic Qualified Code(s): I48.20 - Chronic atrial fibrillation, unspecified (5) Hx of CABG: Status: Chronic (6) Physical deconditioning: Status: Acute (7) CHF exacerbation: Status: Acute Additional A&P Information Generalized weakness related to electrolyte imbalance, physical deconditioning and hyponatremia Hypervolemic Added salt tablets Clinically she does have upper and lower extremity edema added Lasix as well No signs of stroke B12 normal Positive Romberg sign Working with physical therapist Agreeable to go to alf/rehab TSH normal Requested uric acid urine and serum osmolarity Hypomagnesemia: Repleted orally hypokalemia: Repleted A. fib without RVR continue anticoagulation with Eliquis Hypertensive urgency: Blood pressure stable currently on metoprolol, hydralazine, I have increased her lisinopril to 40 mg Full code Consistent carb diet DVT prophylaxis currently on Eliquis Disposition: Short-term rehab venous stasis dermatitis no signs of cellulitis Physical deconditioning Attestations Medical Necessity Statement*: Continue medical care, awaiting alf placement Time Spent in Patient Care: 16 - 35 minutes Coding Level of Care Code Acute [employer] for g Fwd Diagnoses Acute cystitis N30.01 Hematuria presence: with hematuria Weakness R53.1 Hyponatremia E87.1 Atrial fibrillation I48.20 Atrial fibrillation type: unspecified chronic Hx of CABG Z95.1 Physical deconditioning R53.81 CHF exacerbation I50.9
[2020-12-16] MEDS: sodium chloride 1 gm Tablet PO ×2 (14:24→18:10)
[2020-12-16 14:38] LABS: NT Pro B Type Natriuretic Pept 4389 pg/mL (0-125); Uric Acid 3.9 mg/dL (2.4-5.7)
[2020-12-16] MEDS: FUROsemide 20 mg Tablet PO (15:45)
[2020-12-16 16:00] VITALS: BP 160/70; PULSE 68; RESP 18; TEMP 36.9; O2SAT 97
[2020-12-16] MEDS: amoxicillin-clav 875-125 mg Tablet 1 TAB PO (18:10)
[2020-12-16 20:00] VITALS: BP 181/74; PULSE 67; RESP 16; TEMP 36.8; O2SAT 97
[2020-12-16] MEDS: atorvastatin 40 mg Tablet PO (20:19)
[2020-12-17] VITALS (7 sets, daily range): BP systolic 151–185; BP diastolic 47–69; PULSE 64–86; RESP 16–18; TEMP 36.4–37.2; O2SAT 97–99
[2020-12-17 02:38] LABS: Basophils # 0.1 10^3/uL (0.0-0.1); Basophils % 0.5 %; Eosinophils # 0.1 10^3/uL (0.0-0.8); Eosinophils % 1.1 %; Hematocrit 28.7 % (37.0-47.0); Hemoglobin 10.1 g/dL (11.5-15.3); Lymphocytes # 1.8 10^3/uL (0.8-4.8); Lymphocytes % 13.8 %; Mean Corpuscular HGB Conc 35.2 g/dL (30.0-36.0); Mean Corpuscular Hemoglobin 32.7 pg (28.0-34.0); Mean Corpuscular Volume 92.9 fl (81-99); Mean Platelet Volume 11.2 fL (7.4-10.4); Monocytes # 0.8 10^3/uL (0.2-0.9); Monocytes % 6.2 %; Neutrophils # 9.91 10^3/uL (1.8-7.7); Nucleated Red Blood Cells % 0 %; Platelet Count 267 10^3/cmm (130-400); Red Blood Count 3.09 10^6/uL (4.1-5.3); Red Cell Distribution Width 13.4 % (12.1-15.1); White Blood Count 12.7 10^3/uL (4.0-10.0)
[2020-12-17 03:11] LABS: Anion Gap 10.4 (5-19); Blood Urea Nitrogen 10 mg/dL (8-23); Calcium 8.2 mg/dL (8.5-10.5); Carbon Dioxide 24 mmol/L (22-29); Chloride 94 mmol/L (98-107); Glucose 177 mg/dL (65-115); Magnesium 1.7 mg/dL (1.7-2.3); Osmolality Calculated 263 mOsm/kg (285-295); Potassium 3.4 mmol/L (3.5-5.1); Sodium 125 mmol/L (136-145)
[2020-12-17] MEDS: potassium chloride ER 20 mEq Tablet 40 MEQ PO ×2 (08:00→11:49)
[2020-12-17] MEDS: amoxicillin-clav 875-125 mg Tablet 1 TAB PO ×2 (08:00→18:04)
[2020-12-17] MEDS: cilostazol 100 mg Tablet PO (08:00)
[2020-12-17] MEDS: sodium chloride 1 gm Tablet PO (08:00)
[2020-12-17] MEDS: magnesium oxide 400 mg tablet PO ×2 (08:00→18:05)
[2020-12-17] MEDS: apixaban 5 mg Tablet PO ×2 (08:01→20:26)
[2020-12-17] MEDS: pantoprazole DR 40 mg Tablet PO (08:01)
[2020-12-17] MEDS: FUROsemide 40 mg Tablet PO (08:01)
[2020-12-17] MEDS: metoprolol tartrate 25 mg Tablet 12.5 MG PO ×2 (08:01→20:26)
[2020-12-17] MEDS: lisinopril 20 mg Tablet 40 MG PO (08:01)
[2020-12-17] MEDS: hyDRALAzine 25 mg Tablet PO ×3 (08:02→20:17)
[2020-12-17] MEDS: isosorbide mononitrate ER 30 mg Tablet PO (08:02)
[2020-12-17] MEDS: insulin lispro 100 unit/1 mL SUBCUT ×3 (08:55→18:04)
--- NOTE | 2020-12-17 09:31 | P.PN_ITS ---
Subjective Subjective: Interval history: Patient was seen and examined this morning she was eating breakfast Sodium 125 today Potassium 3.4 Inadequate urine output Started Lasix 40 mg p.o. Hypomagnesemia hypokalemia and hyponatremia Patient is willing to go to a skilled nursing leukocytosis at 12 patient has been afebrile, Vitals/I&O/Wt Last Vital Signs Temp 98.9 F 12/17/20 08:00 Pulse 86 12/17/20 08:00 Resp 17 12/17/20 08:00 BP 174/51 12/17/20 08:00 Pulse Ox 97 12/17/20 08:00 12/16/20 12/17/20 12/17/20 22:59 06:59 14:59 Intake Total 52 / 1062 120 / 1182 Output Total 200 / 200 Balance 52 / 1062 -80 / 982 Physical Exam Narrative: EXAM NARRATIVE: Patient was sitting at the bedside eating her breakfast Saturating well on room air Does have upper and lower extremity swelling 1+ Bilateral breath sounds with mild crackles at the bases EOMI, PERRLA Patient is stating that she is still feeling the same as yesterday She try to work with physical therapy yesterday Nonfocal neuro exam Abdomen soft Distended abdomen Visceral obesity Venous stasis dermatitis no sign of cellulitis Data : 12/17/20 02:28 12/17/20 02:28 Micro: Microbiology 12/13/20 18:19 Urine Culture - Final Urine,Clean Catch Escherichia coli A&P Assessment and plan (1) CHF exacerbation: Status: Acute (2) Physical deconditioning: Status: Acute (3) Hyponatremia: Status: Acute (4) Hypokalemia: Status: Acute (5) Hypomagnesemia: Status: Acute (6) CHF (congestive heart failure): Status: Chronic Qualifiers: Heart failure type: diastolic Heart failure chronicity: chronic Qualified Code(s): I50.32 - Chronic diastolic (congestive) heart failure (7) Peripheral artery disease: Status: Chronic (8) Chronic anticoagulation: Status: Acute (9) Acute cystitis: Status: Acute Qualifiers: Hematuria presence: with hematuria Qualified Code(s): N30.01 - Acute cystitis with hematuria (10) Atrial fibrillation: Status: Chronic Qualifiers: Atrial fibrillation type: unspecified chronic Qualified Code(s): I48.20 - Chronic atrial fibrillation, unspecified Additional A&P Information Fatigue and lethargy related to electrolyte imbalance Physical deconditioning, UTI Patient is able to work with physical therapy to some extent Awaiting skilled nursing placement Acute CHF exacerbation BNP 4300 Lasix 40 mg daily Monitor ins and outs Discontinue salt tablet Hyponatremia: Anticipating improvement with diuretics Clinical signs of fluid overload Hypokalemia: Potassium repleted Hypomagnesemia: On p.o. magnesium A. 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
[2020-12-17 10:36] LABS: Glucose Point of Care 253 mg/dL (70-110)
[2020-12-17 10:37] LABS: Glucose Point of Care 214 mg/dL (70-110)
[2020-12-17 10:37] LABS: Glucose Point of Care 154 mg/dL (70-110)
[2020-12-17 10:37] LABS: Glucose Point of Care 170 mg/dL (70-110)
[2020-12-17 11:26] LABS: Glucose Point of Care 228 mg/dL (70-110)
[2020-12-17] MEDS: acetaminophen 325 mg Tablet 650 MG PO ×2 (14:00→20:16)
[2020-12-17 16:12] LABS: Osmolality Serum 275 mOsm/kg (278-305)
[2020-12-17 17:43] LABS: Glucose Point of Care 281 mg/dL (70-110)
[2020-12-17] MEDS: atorvastatin 40 mg Tablet PO (20:17)
[2020-12-17 20:49] LABS: Glucose Point of Care 163 mg/dL (70-110)
[2020-12-18 02:42] LABS: Basophils # 0.1 10^3/uL (0.0-0.1); Basophils % 0.6 %; Eosinophils # 0.2 10^3/uL (0.0-0.8); Eosinophils % 2.6 %; Hematocrit 26.8 % (37.0-47.0); Hemoglobin 9.2 g/dL (11.5-15.3); Lymphocytes % 22.8 %; Mean Corpuscular HGB Conc 34.3 g/dL (30.0-36.0); Mean Corpuscular Hemoglobin 31.6 pg (28.0-34.0); Mean Corpuscular Volume 92.1 fl (81-99); Mean Platelet Volume 11.5 fL (7.4-10.4); Monocytes # 0.6 10^3/uL (0.2-0.9); Monocytes % 6.7 %; Neutrophils # 6.01 10^3/uL (1.8-7.7); Nucleated Red Blood Cells % 0 %; Platelet Count 248 10^3/cmm (130-400); Red Blood Count 2.91 10^6/uL (4.1-5.3); Red Cell Distribution Width 13.5 % (12.1-15.1)
[2020-12-18 03:02] LABS: Anion Gap 10.7 (5-19); Blood Urea Nitrogen 11 mg/dL (8-23); Calcium 8.1 mg/dL (8.5-10.5); Carbon Dioxide 23 mmol/L (22-29); Chloride 96 mmol/L (98-107); Glucose 151 mg/dL (65-115); Magnesium 1.6 mg/dL (1.7-2.3); Osmolality Calculated 262 mOsm/kg (285-295); Potassium 4.7 mmol/L (3.5-5.1); Sodium 125 mmol/L (136-145)
[2020-12-18 03:31] VITALS: BP 161/64; PULSE 64; RESP 18; TEMP 36.8; O2SAT 96
[2020-12-18 06:44] LABS: Glucose Point of Care 141 mg/dL (70-110)
[2020-12-18 08:00] VITALS: BP 192/64; PULSE 70; RESP 17; TEMP 36.9; O2SAT 98
[2020-12-18] MEDS: amoxicillin-clav 875-125 mg Tablet 1 TAB PO ×2 (08:35→18:33)
[2020-12-18] MEDS: lisinopril 20 mg Tablet 40 MG PO (08:35)
[2020-12-18] MEDS: isosorbide mononitrate ER 30 mg Tablet PO (08:36)
[2020-12-18] MEDS: pantoprazole DR 40 mg Tablet PO (08:36)
[2020-12-18] MEDS: hyDRALAzine 25 mg Tablet PO (08:36)
[2020-12-18] MEDS: FUROsemide 40 mg Tablet PO (08:36)
[2020-12-18] MEDS: magnesium oxide 400 mg tablet PO ×2 (08:36→18:33)
[2020-12-18] MEDS: apixaban 5 mg Tablet PO ×2 (08:36→20:14)
[2020-12-18] MEDS: metoprolol tartrate 25 mg Tablet 12.5 MG PO ×2 (08:37→20:14)
[2020-12-18] MEDS: insulin lispro 100 unit/1 mL SUBCUT ×3 (08:38→18:33)
[2020-12-18 11:14] LABS: Glucose Point of Care 243 mg/dL (70-110)
--- NOTE | 2020-12-18 11:19 | PM.PN ---
Subjective Subjective: Interval history: No overnight events, afebrile, doing well on Augmentin, sodium 125 sugar 243 We will check hemoglobin A1c and increase insulin regimen to Lantus 10 units at night along sliding scale Still hypertensive, hypomagnesemia, patient cannot go to any long term because of her previous financial history, plan is to send her home with home health once sodium is above 130, Urine output has not been measured accurately, consult patient and updated nurse to monitor urine output with Lasix Vitals/I&O/Wt Last Vital Signs Temp 98.5 F 12/18/20 08:00 Pulse 70 12/18/20 08:00 Resp 17 12/18/20 08:00 BP 192/64 12/18/20 08:00 Pulse Ox 98 12/18/20 08:00 12/17/20 12/18/20 12/18/20 22:59 06:59 14:59 Intake Total 240 / 600 420 / 1020 240 / 240 Output Total 300 / 300 Balance 240 / 600 120 / 720 240 / 240 Physical Exam Narrative: EXAM NARRATIVE: Patient was eating breakfast when entered the room Saturating well on room air Nonfocal neuro exam Patient is stating that her energy is stable at the same level Her bloating of upper and lower extremity has slightly improved Abdomen soft distended EOMI, PERRLA Nonfocal neuro exam No audible stridor or wheezing Venous stasis dermatitis no signs of cellulitis Data : 12/18/20 02:23 12/18/20 02:23 A&P Assessment and plan (1) Hypomagnesemia: Status: Acute (2) Hypokalemia: Status: Acute (3) CHF exacerbation: Status: Acute (4) Physical deconditioning: Status: Acute (5) Hyponatremia: Status: Acute (6) Peripheral artery disease: Status: Chronic (7) CHF (congestive heart failure): Status: Chronic Qualifiers: Heart failure type: diastolic Heart failure chronicity: chronic Qualified Code(s): I50.32 - Chronic diastolic (congestive) heart failure (8) Chronic anticoagulation: Status: Acute (9) Weakness: Status: Acute (10) Diabetes: Status: Chronic Qualifiers: Diabetes mellitus type: type 2 Diabetes mellitus senior living insulin use: with vermin exterminator use Diabetes mellitus complication status: with hyperglycemia Qualified Code(s): E11.65 - Type 2 diabetes mellitus with hyperglycemia; 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 (11) Atrial fibrillation: Status: Chronic Qualifiers: Atrial fibrillation type: unspecified chronic Qualified Code(s): I48.20 - Chronic atrial fibrillation, unspecified (12) Carotid stenosis: Status: Chronic Qualifiers: Laterality: unspecified laterality Qualified Code(s): I65.29 - Occlusion and stenosis of unspecified carotid artery Additional A&P Information Fatigue and lethargy is multifactorial Hyponatremia, hypomagnesemia Physical deconditioning UTI For UTI she is on Augmentin For hyponatremia, low serum osmolarity, clinically looks fluid overloaded, continue Lasix monitor urine output, Patient is eating okay at this point, clinically she is volume overloaded, BNP 4300 Uric acid, TSH normal Plan to discharge once sodium is below 130 Disposition: Home with home health likely on Monday if sodium is above 130 Preserved ejection heart failure exacerbation A. fib without RVR continue anticoagulation, holding digoxin Hypertension: Optimize antihypertensive regimen Full code Consistent carb diet Hyperglycemia check A1c level add Lantus 10 units Attestations Medical Necessity Statement*: Continue medical management for hyponatremia and fatigue Time Spent in Patient Care: less than 15 minutes Coding Level of Care Code Acute Truck Chauffeur for g Fwd Diagnoses Hypomagnesemia E83.42 Hypokalemia E87.6 CHF exacerbation I50.9 Physical deconditioning R53.81 Hyponatremia E87.1 Peripheral artery disease I73.9 CHF (congestive heart failure) I50.32 Heart failure type: diastolic Heart failure chronicity: chronic Chronic anticoagulation Z79.01 Weakness R53.1 Diabetes E11.65; Z79.4 Diabetes mellitus type: type 2 Diabetes mellitus vermin exterminator insulin use: with vermin exterminator use Diabetes mellitus complication status: with hyperglycemia Atrial fibrillation I48.20 Atrial fibrillation type: unspecified chronic Carotid stenosis I65.29 Laterality: unspecified laterality
[2020-12-18 12:15] LABS: Estmated Average Glucose 223; Hemoglobin A1C 9.4 % (4.0-6.0)
[2020-12-18] MEDS: bumetanide 0.25 mg/mL SDV 10 mL 1 MG IVP (12:27)
[2020-12-18] MEDS: acetaminophen 325 mg Tablet 650 MG PO ×2 (12:28→19:28)
[2020-12-18] MEDS: hyDRALAzine 25 mg Tablet 50 MG PO ×3 (13:21→20:14)
--- NOTE | 2020-12-18 13:24 | PC.SOCIAL ---
IMM Update pg 2 of IMM updated and reviewed w/ patient. Copy provided.
[2020-12-18 18:12] LABS: Glucose Point of Care 203 mg/dL (70-110)
[2020-12-18] MEDS: sodium chloride 1 gm Tablet PO (18:33)
[2020-12-18 19:09] VITALS: BP 171/50; PULSE 68; RESP 18; TEMP 36.6; O2SAT 98
[2020-12-18] MEDS: atorvastatin 40 mg Tablet PO (20:14)
[2020-12-18 20:25] LABS: Glucose Point of Care 129 mg/dL (70-110)
[2020-12-18] MEDS: insulin glargine 100 units/1 mL 10 UNIT SUBCUT (20:36)
[2020-12-19] VITALS: BP 129/53; PULSE 63; RESP 16; TEMP 36.8; O2SAT 95
[2020-12-19] MEDS: zolpidem 5 mg Tablet PO ×2 (00:29→21:02)
[2020-12-19 03:56] VITALS: BP 154/57; PULSE 62; RESP 16; TEMP 36.9; O2SAT 94
--- NOTE | 2020-12-19 05:54 | PC.NURSE ---
Patient AAOx4, resting in bed after receiving medication for insomnia. Patient c/o at beginning of shift of freezing and not feeling right. Patient was afebrile and warm to the touch. Patient c/o staff not listening to her demands. This nurse explained that we are by her side and bringing her what we have available to make her comfortable and that we have been and currently are tending to her needs. Room is clutter free and call light in reach. Hourly rounding performed and patient repositioned frequently. Patient has had multiple incontinent episodes throughout shift with linens changed and patient cleaned.
[2020-12-19 06:05] LABS: Basophils # 0.1 10^3/uL (0.0-0.1); Basophils % 0.8 %; Eosinophils # 0.2 10^3/uL (0.0-0.8); Eosinophils % 2.7 %; Hemoglobin 9.8 g/dL (11.5-15.3); Lymphocytes # 1.4 10^3/uL (0.8-4.8); Lymphocytes % 15.8 %; Mean Corpuscular HGB Conc 33.8 g/dL (30.0-36.0); Mean Corpuscular Hemoglobin 31.8 pg (28.0-34.0); Mean Corpuscular Volume 94.2 fl (81-99); Mean Platelet Volume 11.1 fL (7.4-10.4); Monocytes # 0.7 10^3/uL (0.2-0.9); Monocytes % 7.6 %; Neutrophils # 6.29 10^3/uL (1.8-7.7); Neutrophils % 72.8 %; Nucleated Red Blood Cells % 0 %; Platelet Count 277 10^3/cmm (130-400); Red Blood Count 3.08 10^6/uL (4.1-5.3); Red Cell Distribution Width 13.8 % (12.1-15.1); White Blood Count 8.7 10^3/uL (4.0-10.0)
[2020-12-19 06:22] LABS: Anion Gap 10.5 (5-19); Blood Urea Nitrogen 10 mg/dL (8-23); Calcium 8.4 mg/dL (8.5-10.5); Carbon Dioxide 24 mmol/L (22-29); Chloride 96 mmol/L (98-107); Glucose 100 mg/dL (65-115); Magnesium 1.8 mg/dL (1.7-2.3); Osmolality Calculated 261 mOsm/kg (285-295); Potassium 4.5 mmol/L (3.5-5.1); Sodium 126 mmol/L (136-145)
[2020-12-19 06:49] LABS: Glucose Point of Care 94 mg/dL (70-110)
[2020-12-19] MEDS: acetaminophen 325 mg Tablet 650 MG PO ×2 (07:31→20:04)
[2020-12-19 07:41] VITALS: BP 180/60; PULSE 77; RESP 24; TEMP 36.7; O2SAT 100
[2020-12-19] MEDS: sodium chloride 1 gm Tablet PO (10:16)
[2020-12-19] MEDS: amoxicillin-clav 875-125 mg Tablet 1 TAB PO ×2 (10:17→17:28)
[2020-12-19] MEDS: apixaban 5 mg Tablet PO ×2 (10:17→20:56)
[2020-12-19] MEDS: magnesium oxide 400 mg tablet PO ×2 (10:17→17:28)
[2020-12-19] MEDS: isosorbide mononitrate ER 30 mg Tablet 60 MG PO (10:17)
[2020-12-19] MEDS: hyDRALAzine 25 mg Tablet 50 MG PO ×3 (10:17→20:55)
[2020-12-19] MEDS: metoprolol tartrate 25 mg Tablet 12.5 MG PO ×2 (10:17→20:56)
[2020-12-19] MEDS: lisinopril 20 mg Tablet 40 MG PO (10:18)
[2020-12-19] MEDS: pantoprazole DR 40 mg Tablet PO (10:18)
[2020-12-19 11:32] VITALS: BP 152/69; PULSE 79; RESP 18; TEMP 36.6; O2SAT 97
[2020-12-19 11:39] LABS: Glucose Point of Care 210 mg/dL (70-110)
[2020-12-19] MEDS: bumetanide 0.25 mg/mL SDV 10 mL 1 MG IVP (14:01)
[2020-12-19] MEDS: insulin lispro 100 unit/1 mL SUBCUT (14:01)
[2020-12-19] MEDS: LORazepam 0.5 mg Tablet 0.25 MG PO (14:02)
--- NOTE | 2020-12-19 15:03 | P.PN_ITS ---
Subjective Subjective: Interval history: Patient is stating that she was not able to sleep well last night because of the room temperature, she was extremely cold required multiple layers of blankets This morning she is complaining of pain all over her body Very anxious Sodium has 126 Requested nurse to put a Belle catheter for accurate ins and outs Afebrile No signs of bacteremia Responding well to Augmentin Vitals/I&O/Wt Last Vital Signs Temp 97.8 F 12/19/20 11:32 Pulse 79 12/19/20 11:32 Resp 18 12/19/20 11:32 BP 152/69 12/19/20 11:32 Pulse Ox 97 12/19/20 11:32 12/19/20 12/19/20 12/19/20 06:59 14:59 22:59 Intake Total 500 / 1522 1000 / 1000 Balance 500 / 1072 1000 / 1000 Physical Exam 2 Narrative: EXAM NARRATIVE: Fatigue lethargic Was eating breakfast when entered the room Complaining of pain all over her body Nonfocal neuro exam Looks well-hydrated, edema seems to be improving gradually Abdomen soft Nonfocal neuro exam Saturating well on room air, she was put on nasal cannula transiently Urinary Catheter Management^: Belle: Cath Placed During This Visit: yes Urinary Catheter Date of Insertion: 12/19/20 Urinary Catheter Time of Insertion: 12:28 Data : 12/19/20 05:48 12/19/20 05:48 A&P Assessment and plan (1) Hypomagnesemia: Status: Acute (2) Hypokalemia: Status: Acute (3) CHF exacerbation: Status: Acute (4) Physical deconditioning: Status: Acute (5) Hyponatremia: Status: Acute (6) Peripheral artery disease: Status: Chronic (7) CHF (congestive heart failure): Status: Chronic Qualifiers: Heart failure type: diastolic Heart failure chronicity: chronic Qualified Code(s): I50.32 - Chronic diastolic (congestive) heart failure (8) Chronic anticoagulation: Status: Acute (9) Acute cystitis: Status: Acute Qualifiers: Hematuria presence: with hematuria Qualified Code(s): N30.01 - Acute cystitis with hematuria (10) Weakness: Status: Acute (11) Atrial fibrillation: Status: Chronic Qualifiers: Atrial fibrillation type: unspecified chronic Qualified Code(s): I48.20 - Chronic atrial fibrillation, unspecified Additional A&P Information Multifactorial fatigue and lethargy Sodium 126 continue diuresis Potassium is better today 4.5 Magnesium 1.8 continue p.o. supplementation Afebrile no signs of sepsis Responding well to Augmentin for possible new cultures Plan to discharge her home on Monday Fluid overloaded hypervolemic hyponatremia Belle cath replacement for accurate ins and outs, for last 2 days I have not been given accurate output, clinically patient does look less fluid overloaded, she remained hemodynamically stable Her fatigue and lethargy and pain out of body most likely related to underlying hyponatremia for her anxiety can try a one-time dose of Ativan A. 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
[2020-12-19 15:14] VITALS: BP 185/59; PULSE 70; RESP 18; TEMP 36.7; O2SAT 91
[2020-12-19 17:00] LABS: Glucose Point of Care 138 mg/dL (70-110)
[2020-12-19 20:00] VITALS: BP 168/65; PULSE 87; RESP 18; TEMP 36.6; O2SAT 95
[2020-12-19 20:32] LABS: Glucose Point of Care 116 mg/dL (70-110)
[2020-12-19] MEDS: quetiapine 25 mg Tablet PO (20:56)
[2020-12-19] MEDS: atorvastatin 40 mg Tablet PO (20:56)
[2020-12-19] MEDS: insulin glargine 100 units/1 mL 10 UNIT SUBCUT (21:02)
[2020-12-20] VITALS: BP 106/59; PULSE 66; RESP 17; TEMP 37.1; O2SAT 92
[2020-12-20 04:00] VITALS: BP 162/63; PULSE 71; RESP 18; TEMP 36.6; O2SAT 92
[2020-12-20 04:42] LABS: Anion Gap 12.8 (5-19); Blood Urea Nitrogen 10 mg/dL (8-23); Calcium 8.4 mg/dL (8.5-10.5); Carbon Dioxide 24 mmol/L (22-29); Chloride 95 mmol/L (98-107); Glucose 138 mg/dL (65-115); Osmolality Calculated 265 mOsm/kg (285-295); Potassium 4.8 mmol/L (3.5-5.1); Sodium 127 mmol/L (136-145)
[2020-12-20 06:33] LABS: Glucose Point of Care 127 mg/dL (70-110)
[2020-12-20] MEDS: magnesium oxide 400 mg tablet PO ×2 (07:30→18:14)
[2020-12-20] MEDS: apixaban 5 mg Tablet PO ×2 (07:30→20:06)
[2020-12-20] MEDS: lisinopril 20 mg Tablet 40 MG PO (07:30)
[2020-12-20] MEDS: amoxicillin-clav 875-125 mg Tablet 1 TAB PO ×2 (07:30→18:14)
[2020-12-20] MEDS: hyDRALAzine 25 mg Tablet 50 MG PO ×3 (07:31→20:06)
[2020-12-20] MEDS: pantoprazole DR 40 mg Tablet PO (07:31)
[2020-12-20] MEDS: isosorbide mononitrate ER 30 mg Tablet 60 MG PO (07:31)
[2020-12-20] MEDS: metoprolol tartrate 25 mg Tablet 12.5 MG PO (07:31)
[2020-12-20 08:00] VITALS: BP 181/68; PULSE 80; RESP 18; TEMP 37.3; O2SAT 92
--- NOTE | 2020-12-20 10:35 | PC.SOCIAL ---
IMM Update Discussed medicare rights with patient. Verbalized understanding. Provided her with a copy and placed initialed, timed, dated copy in chart.
[2020-12-20] MEDS: LORazepam 0.5 mg Tablet 0.25 MG PO (10:53)
[2020-12-20] MEDS: acetaminophen 325 mg Tablet 650 MG PO ×2 (10:53→20:06)
--- NOTE | 2020-12-20 11:14 | PM.PN ---
Subjective Subjective: Interval history: Sodium 127 today, patient was moved to a different room because of her neighbor in the other room She is afebrile Belle catheter was placed for accurate ins and outs Continue Bumex 1 mg daily Her blood pressure is still around 1 70-1 80s I will increase her metoprolol dose to 50 mg twice daily, her Imdur was increased to 60 mg, hydralazine 50 3 times daily and lisinopril 40 mg daily she has resistant hypertension Vitals/I&O/Wt Last Vital Signs Temp 99.2 F 12/20/20 08:00 Pulse 80 12/20/20 08:00 Resp 18 12/20/20 08:00 BP 181/68 12/20/20 08:00 Pulse Ox 92 12/20/20 08:00 12/19/20 12/20/20 12/20/20 23:59 06:59 14:59 Intake Total 880 / 880 Output Total Balance 880 / 880 Physical Exam Narrative: EXAM NARRATIVE: Patient is fatigued and lethargic however making eye contact Nonfocal neuro exam Does not cooperate with the staff She had a bowel movement this morning Abdomen is soft distended visceral obesity S1, S2 variable Nonfocal neuro exam Saturating well on room air No audible stridor or wheezing Urinary Catheter Management^: Belle: Cath Placed During This Visit: yes Reason for Continuing Indwelling Catheter: Acute Urinary Retention or Obstruction Urinary Catheter Date of Insertion: 12/19/20 Urinary Catheter Time of Insertion: 12:28 Data : 12/19/20 05:48 12/20/20 03:19 A&P Assessment and plan (1) Hypomagnesemia: Status: Acute (2) Hypokalemia: Status: Acute (3) CHF exacerbation: Status: Acute (4) Physical deconditioning: Status: Acute (5) Hyponatremia: Status: Acute (6) Peripheral artery disease: Status: Chronic (7) CHF (congestive heart failure): Status: Chronic Qualifiers: Heart failure type: diastolic Heart failure chronicity: chronic Qualified Code(s): I50.32 - Chronic diastolic (congestive) heart failure (8) Chronic anticoagulation: Status: Acute (9) Acute cystitis: Status: Acute Qualifiers: Hematuria presence: with hematuria Qualified Code(s): N30.01 - Acute cystitis with hematuria (10) Weakness: Status: Acute (11) Atrial fibrillation: Status: Chronic Qualifiers: Atrial fibrillation type: unspecified chronic Qualified Code(s): I48.20 - Chronic atrial fibrillation, unspecified Additional A&P Information Multifactorial weakness and fatigue: Slight improvement, trial of Ritalin Preserved ejection fraction heart failure exacerbation: Patient is looking euvolemic I would like to give her Bumex 1 mg IV for 1 more day Hyponatremia: Slight improvement with diuresis she is getting euvolemic now Hypokalemia, hypomagnesemia: Repleted Resistant hypertension: She is getting diuretics and multiple antihypertensive regimen blood pressure stable 180/68, today I will increase her metoprolol dose to 50 twice daily A. fib without RVR continue Eliquis Anxiety and depression: I have started Ritalin to see if this would improve her energy and motivation to get out of bed Seroquel added for p.m. use Full code Discharge home on Monday sodium around 130s Consistent carbohydrate diet She stayed over the weekend because she could not be placed to any [facility], no home health services able to accept her because of an outstanding bill she will be discharged home Attestations Medical Necessity Statement*: Discharge home on Monday Time Spent in Patient Care: less than 15 minutes Coding Level of Care Code Acute Vibrating Screed Operator for [facility] Fwd Diagnoses Hypomagnesemia E83.42 Hypokalemia E87.6 CHF exacerbation I50.9 Physical deconditioning R53.81 Hyponatremia E87.1 Peripheral artery disease I73.9 CHF (congestive heart failure) I50.32 Heart failure type: diastolic Heart failure chronicity: chronic Chronic anticoagulation Z79.01 Acute cystitis N30.01 Hematuria presence: with hematuria Weakness R53.1 Atrial fibrillation I48.20 Atrial fibrillation type: unspecified chronic
[2020-12-20 11:47] VITALS: BP 132/67; PULSE 78; RESP 18; TEMP 36.9; O2SAT 94
[2020-12-20 12:38] LABS: Glucose Point of Care 197 mg/dL (70-110)
[2020-12-20] MEDS: methylphenidate 10 mg Tablet PO (13:23)
[2020-12-20] MEDS: bumetanide 0.25 mg/mL SDV 10 mL 1 MG IVP (13:23)
[2020-12-20] MEDS: insulin lispro 100 unit/1 mL SUBCUT ×3 (14:02→20:34)
--- NOTE | 2020-12-20 14:32 | PC.NURSE ---
Radha, daughter in law on [place], called and got an update on Kimberlyn. Radha requests that we call her when Kimberlyn is discharged because she will be the one to pick her up.
[2020-12-20 15:45] VITALS: BP 151/56; PULSE 67; RESP 18; TEMP 36.7; O2SAT 93
[2020-12-20 17:13] LABS: Glucose Point of Care 173 mg/dL (70-110)
[2020-12-20 20:00] VITALS: BP 178/65; PULSE 85; RESP 18; TEMP 36.8; O2SAT 98
[2020-12-20] MEDS: metoprolol tartrate 25 mg Tablet PO (20:06)
[2020-12-20] MEDS: quetiapine 25 mg Tablet PO (20:06)
[2020-12-20] MEDS: atorvastatin 40 mg Tablet PO (20:06)
[2020-12-20 20:22] LABS: Glucose Point of Care 244 mg/dL (70-110)
[2020-12-20] MEDS: insulin glargine 100 units/1 mL 10 UNIT SUBCUT (20:34)
--- NOTE | 2020-12-20 23:09 | CTR_ITS ---
PROCEDURE INFORMATION: Exam: CT Head Without Contrast Exam date and time: 12/20/2020 11:09 PM Age: 75 years old Clinical indication: Altered mental status/memory loss; Additional info: R/O CVA TECHNIQUE: Imaging protocol: Computed tomography of the head without contrast. Radiation optimization: All CT scans at this facility use at least one of these dose optimization techniques: automated exposure control; mA and/or kV adjustment per patient size (includes targeted exams where dose is matched to clinical indication); or iterative reconstruction. COMPARISON: CT head wo con* [id number] 12/13/2020 6:33 PM RADIATION DOSE METRICS: Total DLP (mGy-cm): 1760.38 FINDINGS: Tubes, catheters and devices: Evaluation is limited by motion artifact. Multiple images were repeated with some improvement. Brain: Moderate cortical volume loss. Moderate hypodensities in supratentorial periventricular and subcortical white matter, consistent with microangiopathy. No intracranial hemorrhage. 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 Encephalomalacia in the right temporal lobe. Cerebral ventricles: No ventriculomegaly. Paranasal sinuses: Visualized sinuses are unremarkable. No fluid levels. Mastoid air cells: Visualized mastoid air cells are well aerated. Vasculature: No hyperdense artery. Bones/joints: Unremarkable. No acute fracture. Soft tissues: Unremarkable. CT/CT head wo con* [id number] IMPRESSION: 1. Stable CT head. No acute intracranial abnormality. 2. 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 Radiation Dose CTDIVOL = (mGy): DLP = 1760.38 (mGy-cm)
--- NOTE | 2020-12-20 23:16 | PC.NURSE ---
Charge nurse noted change in patient condition from admission, call placed to hospitalist informing of right sided facial drooping, LUE weakness, RLE weakness, VS 112/51, 57, 20, 96% in room air, 98.[address] scan of head stat.
[2020-12-21] VITALS: BP 120/55; PULSE 70; RESP 18; TEMP 36.9; O2SAT 90
[2020-12-21 04:00] VITALS: BP 172/61; PULSE 75; RESP 16; TEMP 37.1; O2SAT 91
[2020-12-21 06:23] LABS: Blood Urea Nitrogen 11 mg/dL (8-23); Calcium 8.2 mg/dL (8.5-10.5); Carbon Dioxide 25 mmol/L (22-29); Chloride 94 mmol/L (98-107); Glucose 150 mg/dL (65-115); Osmolality Calculated 266 mOsm/kg (285-295); Sodium 127 mmol/L (136-145)
[2020-12-21 06:37] LABS: Anion Gap 12.2 (5-19); Potassium 4.2 mmol/L (3.5-5.1)
[2020-12-21 06:52] LABS: Glucose Point of Care 161 mg/dL (70-110)
[2020-12-21 07:50] VITALS: BP 170/78; PULSE 80; RESP 17; TEMP 37.1; O2SAT 97
[2020-12-21] MEDS: insulin lispro 100 unit/1 mL SUBCUT (08:57)
[2020-12-21] MEDS: amoxicillin-clav 875-125 mg Tablet 1 TAB PO (08:57)
[2020-12-21] MEDS: magnesium oxide 400 mg tablet PO (08:57)
[2020-12-21] MEDS: apixaban 5 mg Tablet PO (08:58)
[2020-12-21] MEDS: pantoprazole DR 40 mg Tablet PO (08:58)
[2020-12-21] MEDS: hyDRALAzine 25 mg Tablet 50 MG PO (08:59)
[2020-12-21] MEDS: metoprolol tartrate 25 mg Tablet PO (08:59)
[2020-12-21] MEDS: isosorbide mononitrate ER 30 mg Tablet 60 MG PO (08:59)
[2020-12-21] MEDS: LORazepam 2 mg/mL INJ 1 mL 0.5 MG IVP (10:07)
--- NOTE | 2020-12-21 11:41 | PM.DCS ---
Discharge Providers Date of Admission: 12/13/20 21:00 Date of Discharge: December 21, 2020 Attending Provider at Admission: Aliya Potter MD Attending Provider at Discharge: Jd Mendoza MD Primary Care Provider: Roney Clinton Diagnoses at Discharge Discharge Diagnosis (1) Hypomagnesemia: Status: Acute (2) Hypokalemia: Status: Acute (3) CHF exacerbation: Status: Acute (4) Physical deconditioning: Status: Acute (5) Hyponatremia: Status: Acute (6) Peripheral artery disease: Status: Chronic (7) CHF (congestive heart failure): Status: Chronic Permanent problem details: Echo 11/27/2019 with EF of 55%, diastolic dysfunction and moderate mitral regurgitation with basal inferior wall hypokinesis Qualifiers: Heart failure chronicity: chronic Heart failure type: diastolic Qualified Code(s): I50.32 - Chronic diastolic (congestive) heart failure (8) Chronic anticoagulation: Status: Acute Permanent problem details: eliquis (9) Acute cystitis: Status: Acute Qualifiers: Hematuria presence: with hematuria Qualified Code(s): N30.01 - Acute cystitis with hematuria (10) Weakness: Status: Acute (11) Atrial fibrillation: Status: Chronic Qualifiers: Atrial fibrillation type: unspecified chronic Qualified Code(s): I48.20 - Chronic atrial fibrillation, unspecified Reason for Visit Reason for Visit: BLOODY STOOL, THROWING UP Hospital Course Hospital Course Patient was admitted for management of weakness related to UTI. She was given antibiotics at the time of admission UA was requested with cultures. Her antibiotics were changed from IV to p.o. as she remained clinically stable, culture sensitivity reviewed. During hospitalization she was diagnosed with CHF exacerbation, which made her hyponatremic as well, with use of diuretics her sodium slightly improved, patient remained in her bed for most of her time during her hospitalization, she was complaining of pain all over her body, she was also experiencing sundowning and anxiety attacks. She was started on Seroquel and required a few doses of Ativan for her panic attacks. She also remained hypertensive for which her antihypertensive regimen was optimized. Digoxin was discontinued. She was declined by care home and home health companies because of an outstanding bill. is willing to take her back and take care of her with help of his [id number]. At the time of discharge I have given Lasix 20 mg for daily usage, increase the dose of isosorbide mononitrate to 60 mg daily, increase the dose of metoprolol tartrate and lisinopril. I have discontinued her Eliquis because she is at risk of falls she is extremely lethargic and fatigued this was discussed with her , family is in agreement to discontinue Eliquis at this point. All potential risks and benefits were discussed with the . His questions were answered to his satisfaction. Patient will be discharged home with a wheelchair. This patient is at risk of readmission secondary to her fatigue and lethargy, I highly doubt she will be accepted to any care home or home health care company because of her credit history. Physical Exam Narrative: EXAM NARRATIVE: Patient is fatigued and lethargic making eye contact, neuro exam unremarkable very irritable and anxious wants to get out of bed and sit in a chair Looks euvolemic Nonfocal neuro exam Does not cooperate with the staff Abdomen is soft, distended, visceral obesity, nontender on palpation, S1, S2 variable Saturating well on room air No audible stridor or wheezing Belle catheter was placed for accurate ins and outs because he was incontinent with use of diuretics, it will be removed before discharge Urinary Catheter Management^: Belle: Cath Placed During This Visit: yes Reason for Continuing Indwelling Catheter: Not indwelling catheter Urinary Catheter Date of Insertion: 12/19/20 Urinary Catheter Time of Insertion: 12:28 Discharge Data Data Completed and Pending: Completed Studies During Hospitalization Category Date Time Status CT head wo con* 7 0450 Stat Cat Scan 12/20/20 23:[address] head wo con* 7 0450 Urgent Cat Scan 12/13/20 18:22 Completed XR chest 1V chepe ble 31549 Stat Exams 12/13/20 18:22 Completed Pending at discharge Category Date Time Status Osmolality Urine Urgent Lab 12/16/20 13:20 Uncollected Urine Random Sodi um Routine Lab 12/16/20 13:22 Uncollected Labs from last 24 hours 12/21/20 12/21/20 12/20/20 06:40 04:55 20:18 Sodium 127 L Potassium 4.2 Chloride 94 L Carbon Dioxide 25 Anion Gap 12.2 BUN 11 Creatinine 0.5 GFR Calculation Not Reportable Glucose 150 H POC Glucose 161 H 244 H Calculated Osmolal ity 266 L Calcium 8.2 L 12/20/20 12/20/20 17:07 11:51 Sodium Potassium Chloride Carbon Dioxide Anion Gap BUN Creatinine GFR Calculation Glucose POC Glucose 173 H 197 H Calculated Osmolal ity Calcium Vitals: Last Vital Signs Temp 98.7 F 12/21/20 07:50 Pulse 80 12/21/20 07:50 Resp 17 12/21/20 07:50 BP 170/78 12/21/20 07:50 Pulse Ox 97 12/21/20 07:50 Discharge Plan Discharge Patient Disposition: Home Condition: Stable Prescriptions: New quinapril 40 mg tablet 40 mg PO DAILY Qty: 30 RF: 2 isosorbide mononitrate 60 mg tablet extended release 24 hr 60 mg PO DAILY Qty: 30 RF: 2 Lasix 20 mg tablet 20 mg PO DAILY Qty: 30 RF: 3 sodium chloride 1 gram tablet 1,000 mg PO DAILY Qty: 5 RF: 0 Continued atorvastatin 40 mg tablet 40 mg PO DAILY RF: 0 cilostazol 100 mg tablet 100 mg PO BID RF: 0 pantoprazole [Protonix] 40 mg tablet,delayed release (DR/EC) 40 mg PO DAILY RF: 0 cyanocobalamin (vitamin B-12) 1,000 mcg capsule 1,000 mcg PO DAILY RF: 0 Trulicity 0.75 mg/0.5 mL pen injector 0.75 mg SUBCUT Q7D RF: 0 metoprolol tartrate 25 mg tablet 25 mg PO BID RF: 0 potassium chloride 20 mEq tablet extended release 20 meq PO BID RF: 0 ferrous sulfate 325 mg (65 mg iron) tablet 325 mg PO TID RF: 0 Levemir U-100 Insulin 100 unit/mL solution See Rx Instructions .ROUTE .COMPLEX RF: 0 insulin lispro [Humalog KwikPen Insulin] 100 unit/mL insulin pen See Rx Instructions .ROUTE .COMPLEX RF: 0 omega-3 fatty acids 1,000 mg capsule 1,000 mg PO TID RF: 0 metformin 1,000 mg Tablet 1,000 mg PO BID RF: 0 Discontinued apixaban 5 mg tablet 5 mg PO BID RF: 0 digoxin 125 mcg (0.125 mg) tablet 125 mcg PO DAILY RF: 0 fenofibrate nanocrystallized 145 mg tablet 145 mg PO DAILY RF: 0 fluoxetine 40 mg capsule 40 mg PO DAILY RF: 0 hydrochlorothiazide 12.5 mg tablet 12.5 mg PO DAILY RF: 0 isosorbide mononitrate 30 mg tablet extended release 24 hr 30 mg PO DAILY RF: 0 quinapril 20 mg tablet 20 mg PO DAILY RF: 0 furosemide [Lasix] 40 mg Tablet 40 mg PO QAM RF: 0 Discharge Orders: Discharge Order (Routine); Ordered 12/21/20 Ordered By: Jd Mendoza Other Ambulatory Orders: DME: Wheelchair (Order) Location: None Selected Ordered By: Jd Mendoza Referrals: Roney Clinton [Primary Care Provider] - 12/29/20 9:20 am Discharge Diet: Cardiac Discharge Activity: Increase activity as tolerated, Use walker/crutches as instructed and As per PT/OT instructions Patient Instructions: Furosemide (By mouth), Isosorbide Mononitrate (By mouth) (Imdur, Imdur ER, Ismo), Quinapril (By mouth), Heart Failure (DC), Hyponatremia (DC), Physical Activity for Older Adults (GEN), CHF Stoplight, Opioid Safety Discharge Attestations Time Spent in Discharge Care*: less than 30 min Quality Metrics Clinical Quality Measures During this hospital stay, did patient experience: None Coding Level of Care Code Acute Chg FW DC note Diagnoses Hypomagnesemia E83.42 Hypokalemia E87.6 CHF exacerbation I50.9 Physical deconditioning R53.81 Hyponatremia E87.1 Peripheral artery disease I73.9 CHF (congestive heart failure) I50.32 Heart failure chronicity: chronic Heart failure type: diastolic Chronic anticoagulation Z79.01 Acute cystitis N30.01 Hematuria presence: with hematuria Weakness R53.1 Atrial fibrillation I48.20 Atrial fibrillation type: unspecified chronic
[2020-12-21 12:44] VITALS: BP 170/78; PULSE 80; RESP 17; TEMP 37.1; O2SAT 97
[2020-12-21] MEDS: bumetanide 0.25 mg/mL SDV 10 mL 1 MG IVP (13:15)
--- NOTE | 2020-12-30 17:06 | PC.SOCIAL ---
[facility] has sent notification regarding cant dispense 5 tablets on sodium need to dispense 100. Called spouse and he picked up the five at the local pharmacy and no further meds required. Patient is now on hospice and they dont expect her to last the night. Offered my condolences.
== END 2020-12-21 13:55 | disposition home or self-care (01) ==
LOC: ER 19:52 → MEDSURG 22:52
PROVIDERS: Emergency Medicine; Nurse Practitioner Family; Admitting Provider Hospitalist; Emergency Provider Emergency Medicine; PCP Family Medicine; Visit Provider Internal Medicine
DX: N30.01 Acute cystitis with hematuria (principal); K92.1 Melena; E87.1 Hypo-osmolality and hyponatremia; R53.1 Weakness; E83.42 Hypomagnesemia; I10 Essential (primary) hypertension; I11.0 Hypertensive heart disease with heart failure; I50.9 Heart failure, unspecified; R53.81 Other malaise; E87.6 Hypokalemia; E11.65 Type 2 diabetes mellitus with hyperglycemia; I25.10 Atherosclerotic heart disease of native coronary artery without angina pectoris; I48.91 Unspecified atrial fibrillation; I50.32 Chronic diastolic (congestive) heart failure; I73.9 Peripheral vascular disease, unspecified; E78.5 Hyperlipidemia, unspecified; Z79.4 Long term (current) use of insulin; Z79.01 Long term (current) use of anticoagulants; Z95.1 Presence of aortocoronary bypass graft; D50.9 Iron deficiency anemia, unspecified; Z87.891 Personal history of nicotine dependence
CPT/HCPCS: 36415; 36416; 51702; 70450; 71045; 80048; 80053; 80162; 81001; 82550; 82607; 82962; 83036; 83735; 83880; 83930; 84100; 84145; 84443; 84484; 84550; 85025; 85610; 86850; 86900; 87077; 87086; 87186; 87426; 93005; 96365; 96372; 97110; 97162; 97165; 97530; 97535; 99285; G0378; J0696; J1815 ×2; J2060; J3475; J3490; J7030